=== PATIENT | female | born 1980 | race Caucasian/White ===

== ENCOUNTER 2017-02-01 17:47 | Emergency (ER) | payer OTHER ==
[2017-02-01 18:00] VITALS: RESP 18; TEMP 98.1
[2017-02-01] MEDS ORDERED: NS 1,000 ML IV ONE (18:29)
--- NOTE | 2017-02-01 18:33 | EDPHY ---
H & P Stated Complaint: upper abd pain/belching/hx gall bladder issues Time Seen by Provider: 02/01/17 18:24 HPI/ROS: CHIEF COMPLAINT: Epigastric pain HISTORY OF PRESENT ILLNESS: The patient is a 36-year-old female who comes to the emergency department complaining of epigastric pain, burning sensation, nausea and 1 episode of nonbloody vomiting. No diarrhea. She states that she has a history of gallstones but it is never hurt this bad. She also has a history of heartburn. Her symptoms improved when she became vegetarian 10 years ago, however she began eating meet again recently. Last night she had a very large hamburger late at night and has felt pain ever since. No fever. Her also had similar symptoms 2 days ago but have now resolved. REVIEW OF SYSTEMS: Constitutional: denies: chills, fever, recent illness, recent injury EENTM: denies: blurred vision, double vision, nose congestion Respiratory: denies: cough, shortness of breath Cardiac: denies: chest pain, irregular heart rate, lightheadedness, palpitations Gastrointestinal/Abdominal: See HPI Genitourinary: denies: dysuria, frequency, hematuria, pain Musculoskeletal: denies: joint pain, muscle pain Skin: denies: lesions, rash, jaundice, bruising Neurological: denies: headache, numbness, paresthesia, tingling, dizziness, weakness Hematologic/Lymphatic: denies: blood clots, easy bleeding, easy bruising Immunologic/allergic: denies: HIV/AIDS, transplant EXAM: GENERAL: Well-appearing, well-nourished and in no acute distress. HEAD: Atraumatic, normocephalic. EYES: Pupils equal round and reactive to light, extraocular movements intact, sclera anicteric, conjunctiva are normal. ENT: TMs normal, nares patent, oropharynx clear without exudates. Moist mucous membranes. NECK: Normal range of motion, supple without lymphadenopathy or JVD. LUNGS: Breath sounds clear to auscultation bilaterally and equal. No wheezes rales or rhonchi. HEART: Regular rate and rhythm without murmurs, rubs or gallops. ABDOMEN: Soft, nontender, normoactive bowel sounds. No guarding, no rebound. No masses appreciated. BACK: No CVA tenderness, no spinal tenderness, step-offs or deformities EXTREMITIES: Normal range of motion, no pitting or edema. No clubbing or cyanosis. NEUROLOGICAL: Cranial nerves II through XII grossly intact. Normal speech, normal gait. 5/5 strength, normal movement in all extremities, normal sensation PSYCH: Normal mood, normal affect. SKIN: Warm, dry, normal turgor, no visible rashes or lesions. Source: Patient Exam Limitations: No limitations - Personal History LMP (Females 10-55): 15-21 Days Ago Current Tetanus/Diphtheria Vaccine: No - Medical/Surgical History Hx Asthma: Yes Hx Chronic Respiratory Disease: No Hx Diabetes: No Hx Cardiac Disease: No Hx Renal Disease: No Hx Cirrhosis: No Hx Alcoholism: No Hx HIV/AIDS: No Hx Splenectomy or Spleen Trauma: No Other PMH: PSH: rhinoplasti;. PMH: asthma; hypothyroidism; heart murmor - Family History Significant Family History: No pertinent family hx - Social History Smoking Status: Former smoker Alcohol Use: None Constitutional: Initial Vital Signs Temperature (C) 36.7 C 02/01/17 17:57 Heart Rate 106 H 02/01/17 17:57 Respiratory Rate 18 02/01/17 17:57 Blood Pressure 121/87 H 02/01/17 17:57 O2 Sat (%) 98 02/01/17 17:57 O2 Delivery Mode Room Air Allergies/Adverse Reactions: codeine Allergy (Verified 02/01/17 17:56) erythromycin base Allergy (Verified 02/01/17 17:56) Home Medications: Medication Instructions Recorded Levothyroxine 02/22/15 Qvar 40 (RX) 02/22/15 Famotidine [Pepcid] 40 mg PO HS #30 tablet 02/01/17 Medical Decision Making - Diagnostics EKG Interpretation: An EKG obtained and was read and documented in trace view. Please see trace view for full reading and report. Inverted T-waves in almost all leads. A repeat EKG obtained and was read and documented in trace view. Please see trace view for full reading and report. Similar to previous Imaging Results: Imaging Impressions Abdomen Ultrasound 02/01/17 18:29 Impression: 1. Normal sonographic appearance of the gallbladder with no cholelithiasis, cholecystitis, or bile duct dilatation. 2. There is a nonspecific 1.9 cm rounded hypoechoic structure in the inferior right hepatic lobe. This could be further evaluated with a multiphasic contrast- enhanced CT scan, given the lack of any preceding studies. 3. There is a 4 mm echogenic structure in the lateral midpole of the right kidney, which is nonspecific and could represent a tiny AML or theoretically at tiny calculus although there is no acoustic shadowing. There is no evidence of hydronephrosis or perinephric fluid. Findings were discussed with RALF RADER MD at 20:04, on 02/01/2017. Imaging: Discussed imaging studies w/ call center representative Radiologist ED Course/Re-evaluation: Patient is declining pain or nausea medication. 8:10 p.m. we discussed the lab and imaging results which are reassuring. The patient would like to try GI cocktail declines other medications. She will follow up with her gastrologist. We discussed the lesions in her liver in follow-up CT scan. She does have some abnormal T-wave inversions on her EKG but no dynamic changes and negative troponin after several hours worth of symptoms which is reassuring. I suspect that this is her baseline. She does not complain of any chest pain or shortness of breath. She states that this is very similar to previous episodes of heartburn. Differential Diagnosis: Partial list of the Differential diagnosis considered include but were not limited to; biliary disease, peptic ulcer disease and although unlikely based on the history and physical exam, I also considered pancreatitis, acute coronary disease, PE, pneumonia, urinary tract infection, kidney stone. I discussed these differential diagnoses and the plan with the patient as well as the usual and expected course. The patient understands that the diagnosis is provisional and that in medicine we are not always correct and that further workup is often warranted. Usual and customary warnings were given. All of the patient's questions were answered. The patient was instructed to return to the emergency department should the symptoms at all worsen or return, otherwise to followup with the physician as we discussed. - Data Points Laboratory Results: Laboratory Results 02/01/17 19:05 02/01/17 19:05 02/01/17 02/01/17 02/01/17 Unknown 19:05 19:05 WBC RBC Hgb Hct MCV MCH MCHC RDW Plt Count MPV Neut % (Auto) Lymph % (Auto) Dougherty % (Auto) Eos % (Auto) Baso % (Auto) Nucleat RBC Rel Count Absolute Neuts (auto) Absolute Lymphs (auto) Absolute Monos (auto) Absolute Eos (auto) Absolute Basos (auto) Absolute Nucleated RBC Immature Gran % Immature Gran # Sodium Potassium Chloride Carbon Dioxide Anion Gap BUN Creatinine Estimated GFR Glucose Calcium Total Bilirubin Conjugated Bilirubin Unconjugated Bilirubin AST ALT Alkaline Phosphatase Troponin I < 0.012 ng/mL ng/mL (0.000-0.034) Total Protein Albumin Lipase Beta HCG, Qual NEGATIVE Urine Color YELLOW Urine Appearance HAZY Urine pH 8.0 H (5.0-7.5) Ur Specific [place] 1.026 (1.002-1.030) Urine Protein 1+ H (NEGATIVE) Urine Ketones 1+ H (NEGATIVE) Urine Blood NEGATIVE (NEGATIVE) Urine Nitrate NEGATIVE (NEGATIVE) Urine Bilirubin NEGATIVE (NEGATIVE) Urine Urobilinogen NEGATIVE EU EU (0.2-1.0) Ur Leukocyte Esterase NEGATIVE (NEGATIVE) Urine RBC 5-10 /hpf H /hpf (0-3) Urine WBC 1-3 /hpf /hpf (0-3) Ur Epithelial Cells TRACE /lpf /lpf (NONE-1+) Urine Mucus TRACE /lpf /lpf (NONE-1+) Urine Glucose NEGATIVE (NEGATIVE) 02/01/17 02/01/17 19:05 19:05 WBC 9.53 10^3/uL H 10^3/uL (3.80-9.50) RBC 5.24 10^6/uL 10^6/uL (4.18-5.33) Hgb 15.0 g/dL g/dL (12.6-16.3) Hct 44.5 % % (38.0-47.0) MCV 84.9 fL fL (81.5-99.8) MCH 28.6 pg pg (27.9-34.1) MCHC 33.7 g/dL g/dL (32.4-36.7) RDW 12.9 % % (11.5-15.2) Plt Count 264 10^3/uL 10^3/uL (150-400) MPV 9.8 fL fL (8.7-11.7) Neut % (Auto) 84.1 % H % (39.3-74.2) Lymph % (Auto) 9.8 % L % (15.0-45.0) Dougherty % (Auto) 4.2 % L % (4.5-13.0) Eos % (Auto) 1.3 % % (0.6-7.6) Baso % (Auto) 0.3 % % (0.3-1.7) Nucleat RBC Rel Count 0.0 % % (0.0-0.2) Absolute Neuts (auto) 8.02 10^3/uL H 10^3/uL (1.70-6.50) Absolute Lymphs (auto) 0.93 10^3/uL L 10^3/uL (1.00-3.00) Absolute Monos (auto) 0.40 10^3/uL 10^3/uL (0.30-0.80) Absolute Eos (auto) 0.12 10^3/uL 10^3/uL (0.03-0.40) Absolute Basos (auto) 0.03 10^3/uL 10^3/uL (0.02-0.10) Absolute Nucleated RBC 0.00 10^3/uL 10^3/uL (0-0.01) Immature Gran % 0.3 % % (0.0-1.1) Immature Gran # 0.03 10^3/uL 10^3/uL (0.00-0.10) Sodium 139 mEq/L mEq/L (134-144) Potassium 3.6 mEq/L mEq/L (3.5-5.2) Chloride 100 mEq/L mEq/L (97-110) Carbon Dioxide 24 mEq/l mEq/l (22-31) Anion Gap 15 mEq/L mEq/L (8-16) BUN 17 mg/dL mg/dL (7-23) Creatinine 0.8 mg/dL mg/dL (0.6-1.0) Estimated GFR > 60 Glucose 96 mg/dL mg/dL (70-100) Calcium 10.0 mg/dL mg/dL (8.5-10.4) Total Bilirubin 0.5 mg/dL mg/dL (0.1-1.4) Conjugated Bilirubin 0.2 mg/dL mg/dL (0.0-0.5) Unconjugated Bilirubin 0.3 mg/dL mg/dL (0.0-1.1) AST 34 IU/L IU/L (14-46) ALT 32 IU/L IU/L (9-52) Alkaline Phosphatase 70 IU/L IU/L (38-126) Troponin I Total Protein 7.9 g/dL g/dL (6.3-8.2) Albumin 4.6 g/dL g/dL (3.5-5.0) Lipase 50 IU/L IU/L (23-300) Beta HCG, Qual Urine Color Urine Appearance Urine pH Ur Specific [place] Urine Protein Urine Ketones Urine Blood Urine Nitrate Urine Bilirubin Urine Urobilinogen Ur Leukocyte Esterase Urine RBC Urine WBC Ur Epithelial Cells Urine Mucus Urine Glucose Medications Given: Discontinued Medications Al Hydroxide/Mg Hydroxide (Maalox Susp) 30 ml PO ONCE ONE Stop: 02/01/17 20:10 Last Admin: 02/01/17 20:31 Dose: 30 ml Hyoscyamine Sulfate (Levsin, Hyomax-Sl) 0.25 mg PO ONCE ONE Stop: 02/01/17 20:10 Last Admin: 02/01/17 20:31 Dose: 0.25 mg Sodium Chloride (Ns) 1,000 mls @ 0 mls/hr IV EDNOW ONE; Wide Open PRN Reason: Protocol Stop: 02/01/17 18:30 Last Admin: 02/01/17 19:09 Dose: 1,000 mls Lidocaine (Lidocaine 2% Viscous) 15 ml PO ONCE ONE Stop: 02/01/17 20:10 Last Admin: 02/01/17 20:31 Dose: 15 ml Departure - Departure Disposition: Home, Routine, Self-Care Clinical Impression: Peptic ulcer disease Condition: Good Instructions: Peptic Ulcer (ED) Referrals: Shereen Hamlin MD [Primary Care Provider] - As per Instructions Prescriptions: Famotidine [Pepcid] 40 mg PO HS #30 tablet
--- NOTE | 2017-02-01 19:11 | CPEKG ---
Heart Rate: 98 RR Interval: 612 P-R Interval: 156 QRSD Interval: 80 QT Interval: 336 QTC Interval: 430 P [place]: 24 QRS [place]: 49 T Wave [place]: -41 EKG Severity - ABNORMAL ECG - EKG Impression: SINUS RHYTHM EKG Impression: NONSPECIFIC T ABNORMALITIES, DIFFUSE LEADS Electronically Signed By: Aman Salinas 01-Feb-2017 19:14:17
[2017-02-01 19:15] LABS: % IMMATURE GRANULYOCYTES 0.3 % (0.0-1.1); ABSOLUTE IMMATURE GRANULOCYTES 0.03 10^3/uL (0.00-0.10); ADD DIFF? NO; ADD MORPH? NO; ADD SCAN? NO; ATYPICAL LYMPHOCYTE FLAG 0 (0-99); FRAGMENT RBC FLAG 0 (0-99); HEMATOCRIT 44.5 % (38.0-47.0); LEFT SHIFT FLG 0 (0-99); LIPEMIA HEMOLYSIS FLAG 80 (0-99); MEAN CELL HEMOGLOBIN 28.6 pg (27.9-34.1); MEAN CELL HEMOGLOBIN CONCENTR. 33.7 g/dL (32.4-36.7); MEAN CELL VOLUME 84.9 fL (81.5-99.8); MEAN PLATELET VOLUME 9.8 fL (8.7-11.7); PLATELET CLUMPS FLAG 0 (0-99); PLATELET COUNT 264 10^3/uL (150-400); RED BLOOD CELL COUNT 5.24 10^6/uL (4.18-5.33); RED CELL DISTRIBUTION WIDTH 12.9 % (11.5-15.2)
[2017-02-01 19:16] LABS: COLOR YELLOW; LEUKOCYTE ESTERASE,URINE NEGATIVE (NEGATIVE); NITRITE,URINE NEGATIVE (NEGATIVE)
[2017-02-01 19:22] LABS: MUCUS TRACE /lpf (NONE-1+)
[2017-02-01 19:26] LABS: ALANINE AMINOTRANSFERASE 32 IU/L (9-52); ALBUMIN 4.6 g/dL (3.5-5.0); ALKALINE PHOSPHATASE 70 IU/L (38-126); ANION GAP 15 mEq/L (8-16); ASPARTATE AMINOTRANSFERASE 34 IU/L (14-46); BILIRUBIN,TOTAL 0.5 mg/dL (0.1-1.4); BILIRUBIN-CONJUGATED 0.2 mg/dL (0.0-0.5); BILIRUBIN-UNCONJUGATED 0.3 mg/dL (0.0-1.1); CARBON DIOXIDE 24 mEq/l (22-31); CHLORIDE 100 mEq/L (97-110); CREATININE 0.8 mg/dL (0.6-1.0); GLOMERULAR FILTRATION RATE > 60; GLUCOSE 96 mg/dL (70-100); POTASSIUM 3.6 mEq/L (3.5-5.2); SODIUM 139 mEq/L (134-144); TOTAL PROTEIN 7.9 g/dL (6.3-8.2)
--- NOTE | 2017-02-01 19:49 | CPEKG ---
Heart Rate: 98 RR Interval: 612 P-R Interval: 152 QRSD Interval: 80 QT Interval: 316 QTC Interval: 404 P [place]: 37 QRS [place]: 54 T Wave [place]: -54 EKG Severity - ABNORMAL ECG - EKG Impression: SINUS RHYTHM EKG Impression: NONSPECIFIC T ABNORMALITIES, DIFFUSE LEADS EKG Impression: Unchanged from previous Electronically Signed By: Aman Salinas 01-Feb-2017 19:50:14
[2017-02-01] MEDS ORDERED: MAG HYDROX/AL HYDROX/SIMETH 30 ML UDCUP PO ONE (20:09)
[2017-02-01] MEDS ORDERED: HYOSCYAMINE SULFATE 0.125 MG TAB PO ONE (20:09)
[2017-02-01] MEDS ORDERED: LIDOCAINE 2% VISCOUS 15 ML UDCUP PO ONE (20:09)
[2017-02-01 20:45] VITALS: BP 122/89; PULSE 78; O2SAT 97
== END 2017-02-01 20:45 | disposition home or self-care (01) ==
PROC: 3E0337Z Introduction of Electrolytic and Water Balance Substance into Peripheral Vein, Percutaneous Approach (ICD-10-PCS; principal; 2017-02-01)
DX: K27.9 Peptic ulcer, site unspecified, unspecified as acute or chronic, without hemorrhage or perforation (principal); J45.909 Unspecified asthma, uncomplicated; E86.9 Volume depletion, unspecified; Z87.891 Personal history of nicotine dependence

== ENCOUNTER → 2017-05-11 | Outpatient (CLI) | payer OTHER ==
[~2017-05-11] MED LIST: GADOBUTROL 10 ML VIAL IVP ONE
== END ==
LOC: FIMAGING 06:58
PROVIDERS: ATTEND Internal Medicine Gastroenterology
DX: K76.9 Liver disease, unspecified (principal); N28.9 Disorder of kidney and ureter, unspecified
CPT/HCPCS: A9585

== ENCOUNTER → 2017-08-17 | Outpatient (CLI) | payer OTHER | LOC: FIMAGING 09:08 | PROVIDERS: ATTEND Internal Medicine Gastroenterology | DX: K76.89 Other specified diseases of liver (principal); D17.71 Benign lipomatous neoplasm of kidney ==

== ENCOUNTER → 2017-08-21 | Outpatient (CLI) | payer OTHER | LOC: FIMAGING 14:51 | PROVIDERS: ATTEND Obstetrics & Gynecology | DX: Z36.82 Encounter for antenatal screening for nuchal translucency (principal); O09.521 Supervision of elderly multigravida, first trimester; Z3A.11 11 weeks gestation of pregnancy ==

== ENCOUNTER → 2017-12-11 | Outpatient (CLI) | payer OTHER | LOC: FIMAGING 08:14 | PROVIDERS: ATTEND Internal Medicine Gastroenterology | DX: K76.89 Other specified diseases of liver (principal) ==

== ENCOUNTER → 2017-12-27 | Outpatient (CLI) | payer OTHER | LOC: FIMAGING 11:06 | PROVIDERS: ATTEND Obstetrics & Gynecology | DX: O09.523 Supervision of elderly multigravida, third trimester (principal); O36.8390 Maternal care for abnormalities of the fetal heart rate or rhythm, unspecified trimester, not applicable or unspecified; O26.613 Liver and biliary tract disorders in pregnancy, third trimester; Z3A.30 30 weeks gestation of pregnancy ==

== ENCOUNTER 2018-01-30 15:50 | Inpatient (IN) | payer OTHER ==
[2018-01-30 16:30] LABS: PLATELET COUNT 179 10^3/uL (150-400)
[2018-01-30] MEDS ORDERED: BETAMETHASONE IM SYRINGE IM ONE (19:18)
[2018-01-30] MEDS ORDERED: diphenhydrAMINE 25 MG CAP PO PRN (19:20)
[2018-01-30] MEDS ORDERED: ZOLPIDEM TARTRATE 5 MG TAB PO PRN (19:21)
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
[2018-01-31] MEDS: LEVOTHYROXINE 150 MCG TAB PO SCH (06:07)
[2018-01-31 06:35] LABS: PLATELET COUNT 196 10^3/uL (150-400)
--- NOTE | 2018-01-31 09:59 | OBPROG ---
Labor Progress Note Assessment/Plan: Assessment: 37 at 35w1d by LMP c/w 10 wk US - here with preeclampsia, with BPs intermittently in the severe range. PIH labs this morning in the normal range, and strangely p/c has normalized ( was 2.2 yesterday). Plan:1) s/p betamethasone #1 last night - plan #2 tonight at 1920 2) MFM consult today - has already had growth ultrasound. Will make plan after MFM input. Continue in house observation for now. May need to consider anti-HTN medication. Norma Workman MD, [facility] 01/31/18 09:46 Subjective/Intrapartum Course: Pt doing well. Good FM, no VB, no LOF. Not feeling any contractions. Currently has a mild PARKER, no vis changes, no epigastric pain, no RUQ pain. 01/31/18 10:20 Objective: 01/31/18 06:15 01/31/18 06:15 Uric Acid 6.3 mg/dL (2.5-6.8) 01/31/18 06:15 Total Bilirubin 0.2 mg/dL (0.1-1.4) 01/31/18 06:15 Conjugated Bilirubin 0.1 mg/dL (0.0-0.5) 01/31/18 06:15 Unconjugated Bilirubin 0.1 mg/dL (0.0-1.1) 01/31/18 06:15 AST 15 IU/L (14-46) 01/31/18 06:15 ALT 16 IU/L (9-52) 01/31/18 06:15 Lactate Dehydrogenase 427 IU/L (313-618) 01/31/18 06:15 gen - pleasant, NAD CV - RRR chest - CTAB abd - gravid, soft, NT ext - 2+ pitting edema, 2+ DTRs BLE, 1 + clonus FHR - 130 reactive toco - no contractions BPs 37.2 92 140/83 BPs: at 1545 162/99 yesterday, and at 2152 163/91 overnight - some 120-130/70-80s - Contraction Pattern Assessment Current Contraction Pattern: Irregular - FHR Assessment Martinez FHR (bpm): 130 FHR Pattern Variability: Moderate FHR Category: 1 Oxytocin Orders Assessment - Pre-Induction/Augmentation Assessment Gestational Age: 35 week(s) and 0 day(s) ICD10 Worksheet Patient Problems: Problems Problem Status Onset Preeclampsia Acute - ICD10 Problem Qualifiers (1) Preeclampsia Qualifiers: Trimester: third trimester Qualified Code(s): O14.93 - Unspecified pre- eclampsia, third trimester
--- NOTE | 2018-01-31 13:00 | OBPROG ---
Labor Progress Note Assessment/Plan: Assessment: 37 at 35w1d by LMP c/w 10 wk US - here with preeclampsia, with BPs intermittently in the severe range. PIH labs this morning in the normal range, and strangely p/c has normalized ( was 2.2 yesterday). Plan:1) s/p betamethasone #1 last night - plan #2 tonight at 1920 2) MFM consult today - has already had growth ultrasound. Will make plan after MFM input. Continue in house observation for now. May need to consider anti-HTN medication. Norma Workman MD, FACOG [facility] 01/31/18 09:46 01/31/18 12:56 A/P: 37 at 35w1d with preeclampsia with severe features - diagnosis confirmed by Dr. Finch, [facility]. Will proceed with induction of labor, with mag sulfate. Will check cervix and likely start with cervical balloon and pitocin. Norma Workman MD, [facility]OG [facility] Subjective/Intrapartum Course: Pt doing well. Good FM, no VB, no LOF. Not feeling any contractions. Currently has a mild PARKER, no vis changes, no epigastric pain, no RUQ pain. 01/31/18 10:20 01/31/18 13:00 Pt resting comfortably. Still with a mild PARKER. Objective: 01/31/18 06:15 01/31/18 06:15 Uric Acid 6.3 mg/dL (2.5-6.8) 01/31/18 06:15 Total Bilirubin 0.2 mg/dL (0.1-1.4) 01/31/18 06:15 Conjugated Bilirubin 0.1 mg/dL (0.0-0.5) 01/31/18 06:15 Unconjugated Bilirubin 0.1 mg/dL (0.0-1.1) 01/31/18 06:15 AST 15 IU/L (14-46) 01/31/18 06:15 ALT 16 IU/L (9-52) 01/31/18 06:15 Lactate Dehydrogenase 427 IU/L (313-618) 01/31/18 06:15 NO changes since 0900 exam. 135/75 88 now - Contraction Pattern Assessment Current Contraction Pattern: Irregular - FHR Assessment Martinez FHR (bpm): 130 FHR Pattern Variability: Moderate FHR Category: 1 Oxytocin Orders Assessment - Pre-Induction/Augmentation Assessment Gestational Age: 35 week(s) and 0 day(s) ICD10 Worksheet Patient Problems: Problems Problem Status Onset Preeclampsia Acute Severe pre-eclampsia Acute Severe pre-eclampsia Acute - ICD10 Problem Qualifiers (1) Preeclampsia Qualifiers: Trimester: third trimester Qualified Code(s): O14.93 - Unspecified pre- eclampsia, third trimester (2) Severe pre-eclampsia (3) Severe pre-eclampsia
[2018-01-31] MEDS ORDERED: MAGNESIUM SULF 4 GM/WATER 100 ML IV ONE (13:14)
[2018-01-31] MEDS ORDERED: CALCIUM GLUC 10% 1 GM/10 ML VIAL IVP PRN (13:14)
--- NOTE | 2018-01-31 14:26 | OBPROG ---
Labor Progress Note Assessment/Plan: Assessment: 37 at 35w1d by LMP c/w 10 wk US - here with preeclampsia, with BPs intermittently in the severe range. PIH labs this morning in the normal range, and strangely p/c has normalized ( was 2.2 yesterday). Plan:1) s/p betamethasone #1 last night - plan #2 tonight at 1920 2) MFM consult today - has already had growth ultrasound. Will make plan after MFM input. Continue in house observation for now. May need to consider anti-HTN medication. Norma Workman MD, FACOG [facility] 01/31/18 09:46 01/31/18 12:56 A/P: 37 at 35w1d with preeclampsia with severe features - diagnosis confirmed by Dr. Finch, [facility]. Will proceed with induction of labor, with mag sulfate for seizure prophylaxis. PCN for GBS unknown and . Will ripen cervix with buccal misoprostil to start. Norma Workman MD, [facility] 01/31/18 14:36 Subjective/Intrapartum Course: Pt doing well. Good FM, no VB, no LOF. Not feeling any contractions. Currently has a mild PARKER, no vis changes, no epigastric pain, no RUQ pain. 01/31/18 10:20 01/31/18 13:00 Pt resting comfortably. Still with a mild PARKER. Objective: 01/31/18 06:15 01/31/18 06:15 Uric Acid 6.3 mg/dL (2.5-6.8) 01/31/18 06:15 Total Bilirubin 0.2 mg/dL (0.1-1.4) 01/31/18 06:15 Conjugated Bilirubin 0.1 mg/dL (0.0-0.5) 01/31/18 06:15 Unconjugated Bilirubin 0.1 mg/dL (0.0-1.1) 01/31/18 06:15 AST 15 IU/L (14-46) 01/31/18 06:15 ALT 16 IU/L (9-52) 01/31/18 06:15 Lactate Dehydrogenase 427 IU/L (313-618) 01/31/18 06:15 - Contraction Pattern Assessment Current Contraction Pattern: Irregular Oxytocin Orders Assessment - Pre-Induction/Augmentation Assessment Gestational Age: 35 week(s) and 0 day(s) ICD10 Worksheet Patient Problems: Problems Problem Status Onset Preeclampsia Acute Severe pre-eclampsia Acute Severe pre-eclampsia Acute - ICD10 Problem Qualifiers (1) Preeclampsia Qualifiers: Trimester: third trimester Qualified Code(s): O14.93 - Unspecified pre- eclampsia, third trimester (2) Severe pre-eclampsia (3) Severe pre-eclampsia
[2018-01-31] MEDS ORDERED: PENICILLIN G POTASSIUM 5,000,000 UNIT in D5W 150 ML IV ONE (14:28)
[2018-01-31] MEDS: LR 1,000 ML IV SCH (14:30)
[2018-01-31] MEDS: Mag Sulf 500 ML IV SCH (14:35)
[2018-01-31] MEDS: MISOPROSTOL 50 MCG CAP PO PRN ×2 (15:01→19:09)
[2018-01-31] MEDS: RANITIDINE HCL 150 MG/10 ML UDCUP PO SCH ×2 (15:02→22:06)
[2018-01-31] MEDS ORDERED: AMMONIA AROMATIC 1 EACH AMP IH ONE (17:27)
[2018-01-31] MEDS ORDERED: OLIVE OIL 118 ML BTL ONE (17:27)
[2018-01-31] MEDS ORDERED: LIDOCAINE 1% 300 MG/30 ML SDV ONE (17:27)
[2018-01-31] MEDS ORDERED: TERBUTALINE SULFATE 1 MG/ML VIAL ONE (17:27)
[2018-01-31] MEDS ORDERED: OXYTOCIN 10 UNIT/ML VIAL ONE (17:28)
[2018-01-31] MEDS ORDERED: MISOPROSTOL 200 MCG TAB ONE (17:28)
[2018-01-31] MEDS: PENICILLIN G POTASSIUM 2,500,000 UNIT in D5W 150 ML IV SCH ×2 (19:09→23:04)
[2018-01-31] MEDS ORDERED: BETAMETHASONE IM SYRINGE IM ONE (19:19)
--- NOTE | 2018-01-31 20:05 | OBPROG ---
Labor Progress Note Assessment/Plan: Assessment: 38 at 35w1d by LMP c/w 10 wk US - here with preeclampsia, with BPs intermittently in the severe range. PIH labs this morning in the normal range, and strangely p/c has normalized ( was 2.2 yesterday). Plan:1) s/p betamethasone #1 last night - plan #2 tonight at 1920 2) MFM consult today - has already had growth ultrasound. Will make plan after MFM input. Continue in house observation for now. May need to consider anti-HTN medication. Norma Workman MD, [facility] 01/31/18 09:46 01/31/18 12:56 A/P: 38 at 35w1d with preeclampsia with severe features - diagnosis confirmed by Dr. Finch, [facility]. Will proceed with induction of labor, with mag sulfate for seizure prophylaxis. PCN for GBS unknown and . Will ripen cervix with buccal misoprostil to start. Norma Workman MD, [facility] 01/31/18 14:36 A/P: 38 at 35w1d - undergoing IOL for preeclampsia with severe features. Misoprostil #1 buccally given at 1500 - reviewed options and pt would like to continue with this for now - is having mild contractions. Continue magsulfate seizure prophylaxis - tolerating well so far. Cont PCN for , unknown GBS status (still pending). Betamethasone #2 given Omid Workman MD 01/31/18 20:02 Subjective/Intrapartum Course: Pt doing well. Good FM, no VB, no LOF. Not feeling any contractions. Currently has a mild PARKER, no vis changes, no epigastric pain, no RUQ pain. 01/31/18 10:20 01/31/18 13:00 Pt resting comfortably. Still with a mild PARKER. 01/31/18 20:09 Pt having some anxiety - was concerned she was having palpitations, then was feeling chest tightness, but after more discussion -was feeling this tightness when she was having a contraction on the monitor, but was not aware of it. No PARKER currently, no vis changes, no dyspnea. Feels tired. No vis changes. Objective: 01/31/18 06:15 01/31/18 06:15 Patient ABO/Rh O POSITIVE 01/31/18 13:55 Uric Acid 6.3 mg/dL (2.5-6.8) 01/31/18 06:15 Total Bilirubin 0.2 mg/dL (0.1-1.4) 01/31/18 06:15 Conjugated Bilirubin 0.1 mg/dL (0.0-0.5) 01/31/18 06:15 Unconjugated Bilirubin 0.1 mg/dL (0.0-1.1) 01/31/18 06:15 AST 15 IU/L (14-46) 01/31/18 06:15 ALT 16 IU/L (9-52) 01/31/18 06:15 Lactate Dehydrogenase 427 IU/L (313-618) 01/31/18 06:15 Group B Strep DNA POSITIVE (NEGATIVE) H 01/30/18 19:15 gen - pleasant, NAD abd - gravid, soft NT when not eugenie - Contraction Pattern Assessment Current Contraction Pattern: Irregular (q2-6) - FHR Assessment Martinez FHR (bpm): 130 FHR Pattern Variability: Moderate FHR Category: 1 Oxytocin Orders Assessment - Pre-Induction/Augmentation Assessment Gestational Age: 35 week(s) and 0 day(s) ICD10 Worksheet Patient Problems: Problems Problem Status Onset Preeclampsia Acute Severe pre-eclampsia Acute Severe pre-eclampsia Acute - ICD10 Problem Qualifiers (1) Preeclampsia Qualifiers: Trimester: third trimester Qualified Code(s): O14.93 - Unspecified pre- eclampsia, third trimester (2) Severe pre-eclampsia (3) Severe pre-eclampsia
--- NOTE | 2018-01-31 23:14 | OBPROG ---
Labor Progress Note Assessment/Plan: Assessment: 38 at 35w1d by LMP c/w 10 wk US - here with preeclampsia, with BPs intermittently in the severe range. PIH labs this morning in the normal range, and strangely p/c has normalized ( was 2.2 yesterday). Plan:1) s/p betamethasone #1 last night - plan #2 tonight at 1920 2) MFM consult today - has already had growth ultrasound. Will make plan after MFM input. Continue in house observation for now. May need to consider anti-HTN medication. Norma Workman MD, [facility] 01/31/18 09:46 01/31/18 12:56 A/P: 37 at 35w1d with preeclampsia with severe features - diagnosis confirmed by Dr. Finch, [facility]. Will proceed with induction of labor, with mag sulfate for seizure prophylaxis. PCN for GBS unknown and . Will ripen cervix with buccal misoprostil to start. Norma Workman MD, [facility] 01/31/18 14:36 A/P: 37 at 35w1d - undergoing IOL for preeclampsia with severe features. Misoprostil #1 buccally given at 1500 - reviewed options and pt would like to continue with this for now - is having mild contractions. Continue magsulfate seizure prophylaxis - tolerating well so far. Cont PCN for , unknown GBS status (still pending). Betamethasone #2 given Omid Workman MD 01/31/18 20:02 A/P: 38 at 35w1d - undergoing IOL for preeclampsia with severe features, good urine output, BPs stable. 1) Transcervical balloon catheter placed digitally - 60ml in uterine balloon, 40ml in vaginal balloon, will start pitocin (has been over 4 hours since 2nd dose of misoprostil buccally. 2) Cont Magsulfate for seizure prophylaxis 3) Cont PCN for GBS pos 4) S/p betameth #2 at 1930 tonight 01/31/18 23:42 Subjective/Intrapartum Course: Pt doing well. Good FM, no VB, no LOF. Not feeling any contractions. Currently has a mild PARKER, no vis changes, no epigastric pain, no RUQ pain. 01/31/18 10:20 01/31/18 13:00 Pt resting comfortably. Still with a mild PARKER. 01/31/18 20:09 Pt having some anxiety - was concerned she was having palpitations, then was feeling chest tightness, but after more discussion -was feeling this tightness when she was having a contraction on the monitor, but was not aware of it. No PARKER currently, no vis changes, no dyspnea. Feels tired. No vis changes. 01/31/18 23:48 Pt doing well, though still very anxious. Still interprets the beginning of a contraction as some chest tightness, but no longer as anxiety producing since she knows they are contractions. No PARKER, no vis changes, no dyspnea. Objective: 01/31/18 06:15 01/31/18 06:15 Patient ABO/Rh O POSITIVE 01/31/18 13:55 Uric Acid 6.3 mg/dL (2.5-6.8) 01/31/18 06:15 Total Bilirubin 0.2 mg/dL (0.1-1.4) 01/31/18 06:15 Conjugated Bilirubin 0.1 mg/dL (0.0-0.5) 01/31/18 06:15 Unconjugated Bilirubin 0.1 mg/dL (0.0-1.1) 01/31/18 06:15 AST 15 IU/L (14-46) 01/31/18 06:15 ALT 16 IU/L (9-52) 01/31/18 06:15 Lactate Dehydrogenase 427 IU/L (313-618) 01/31/18 06:15 Group B Strep DNA POSITIVE (NEGATIVE) H 01/30/18 19:15 urine output = 825ml in past 3 hours gen - pleasant, NAD CV - RRR chest - CTAB abd - soft, gravid, NT ext -2+ DTRs, still 1 beat of clonus. SVE 1.5 / 70 / -3 With sterile gloves, was able to digitally place a Cook Catheter using a stylet , and have RN fill uterine balloon with 60ml fluid, and vaginal balloon with 40ml of fluid. Pt ketty well, though initially felt some rectal pressure, which seemed to resolve after a few minutes. EFW = 77%ile, 2877gm = 6lb5oz, cephalic per MFM scan today. - Contraction Pattern Assessment Current Contraction Pattern: Regular (q5-7), Irregular (q2-6) - FHR Assessment Martinez FHR (bpm): 130 FHR Pattern Variability: Moderate FHR Category: 1 - Procedures Non-surgical Procedures: Other (Specify) (Cook transcervical balloon catheter placed, 60ml U, 40ml V. ) Oxytocin Orders Assessment - Pre-Induction/Augmentation Assessment Gestational Age: 35 week(s) and 0 day(s) ICD10 Worksheet Patient Problems: Problems Problem Status Onset Preeclampsia Acute Severe pre-eclampsia Acute Severe pre-eclampsia Acute - ICD10 Problem Qualifiers (1) Preeclampsia Qualifiers: Trimester: third trimester Qualified Code(s): O14.93 - Unspecified pre- eclampsia, third trimester (2) Severe pre-eclampsia (3) Severe pre-eclampsia
[2018-01-31] MEDS ORDERED: LR 500 ML IV PRN (23:44)
[2018-01-31] MEDS: OXYTOCIN/RINGERS LACTATE 500 ML IV SCH (23:59)
[2018-02-01] MEDS: Mag Sulf 500 ML IV SCH ×3 (01:11→20:57)
[2018-02-01] MEDS ORDERED: fentaNYL 200 MCG, BUPIVACAINE 0.5% 20 ML in NS 100 ML EP ONE (01:30)
[2018-02-01] MEDS ORDERED: LABETALOL HCL 5 MG/ML 20 ML MDV ONE (01:35)
[2018-02-01] MEDS ORDERED: BUPIVACAINE 0.5% 30 ML SDV ONE ×3 (01:36→19:38)
[2018-02-01] MEDS ORDERED: PHENYLEPHRINE HCL 100 MCG/ML SYR ONE (01:37)
[2018-02-01] MEDS ORDERED: LABETALOL HCL 5 MG/ML 20 ML MDV IVP ONE (01:45)
[2018-02-01] MEDS ORDERED: PHENYLEPHRINE HCL 100 MCG/ML SYR IVP PRN (02:10)
--- NOTE | 2018-02-01 02:10 | PREANESOB ---
Obstetric Pre-Anesthesia Info - General Info Proposed Procedure: TINY : 2 Para: 0 PAUL: 03/06/18 Gestational Age: 35 week(s) and 0 day(s) - Info Status: Premature, Martinez Monitors: External FHR Pattern: Reassuring - Labor Status PIH: Moderate Magnesium Sulfate in Use: Yes Indications for Labor Analgesia: BP Control, Pain Control Labor Epidural: Proposed Anesthesia Allergies/Adverse Reactions: Allergy/AdvReac Type Severity Reaction Status Date / Time codeine Allergy Verified 02/01/17 17:56 erythromycin base Allergy Verified 02/01/17 17:56 Home Medications: Medication Instructions Recorded Levothyroxine 150 mcg PO DAILY 02/22/15 Qvar 40 (RX) 80 mcg PO DAILY 02/22/15 Docosahexanoic Acid [ Dha] 1 tab PO DAILY MDD does gummies 01/30/18 Visit Medications: Generic Name Dose Route Start Last Admin Trade Name Freq PRN Reason Stop Dose Admin Calcium Gluconate 1 gm 01/31/18 13:14 Calcium Gluconate IVP 07/30/18 13:13 PRN PRN Magnesium Toxicity Diphenhydramine HCl 25 mg 01/30/18 19:20 Benadryl PO 07/29/18 19:19 HS PRN Sleep/Insomnia Magnesium Sulfate 500 mls @ 50 mls/hr 01/31/18 13:30 02/01/18 01:11 Magnesium Sulfate 20 Gm/ 500 Ml (Premix) IV 07/30/18 13:29 500 mls CONT JUAN J Administration Penicillin G Potassium 2,500, 155 mls @ 155 mls/hr 01/31/18 20:00 01/31/18 23 :04 000 unit/ Dextrose IV 03/02/18 19:59 155 mls Q4H JUAN J Administration Lactated Ringer's 1,000 mls @ 75 mls/hr 01/31/18 18:00 01/31/18 14:30 Lr IV 07/30/18 17:59 1,000 mls CONT JUAN J Administration Lactated Ringer's 500 mls @ 500 mls/hr 01/31/18 23:44 Lr IV 02/01/18 23:44 PRN PRN Maternal Hypotension Oxytocin/Lactated Ringer's 500 mls @ 0 mls/hr 01/31/18 23:45 01/31/18 23:59 Pitocin 30 Units/Lr (Premix) IV 07/30/18 23:44 500 mls CONT JUAN J Administration Protocol Per Protocol Levothyroxine Sodium 150 mcg 01/31/18 06:00 01/31/18 06:07 Synthroid PO 07/30/18 05:59 150 mcg DAILY AT 6AM JUAN J Administration Misoprostol 50 mcg 01/31/18 14:13 01/31/18 19:09 Cytotec PO 07/30/18 14:12 50 mcg PRN PRN Administration cervical ripening Ranitidine HCl 150 mg 01/31/18 10:45 01/31/18 22:06 Zantac PO 07/30/18 10:44 Not Given BID JUAN J Zolpidem Tartrate 5 mg 01/30/18 19:21 Ambien PO 07/29/18 19:20 HS PRN Sleep/Insomnia Discontinued Medications Generic Name Dose Route Start Last Admin Trade Name Freq PRN Reason Stop Dose Admin Ammonia (Aromatic Spirit) Confirm 01/31/18 17:27 Ammonia Aromatic Administered 01/31/18 17:28 Dose 1 each IH .STK-MED ONE Betamethasone Acet/Betameth SodPhos 12 mg 01/30/18 19:18 01/30/18 19:39 Celestone Im Syringe IM 01/30/18 19:19 12 mg ONCE ONE Administration Betamethasone Acet/Betameth SodPhos 12 mg 01/31/18 19:19 01/31/18 19:42 Celestone Im Syringe IM 01/31/18 19:20 12 mg ONCE ONE Administration Bupivacaine HCl Confirm 02/01/18 01:36 Sensorcaine 0.5% Vial Administered 02/01/18 01:37 Dose 30 ml .ROUTE .STK-MED ONE Magnesium Sulfate 100 mls @ 200 mls/hr 01/31/18 13:14 01/31/18 14:35 Magnesium Sulf 4 Gm (Premix) IV 01/31/18 13:43 100 mls ONCE ONE Administration Penicillin G Potassium 5,000, 160 mls @ 160 mls/hr 01/31/18 14:28 01/31/18 14 :54 000 unit/ Dextrose IV 01/31/18 15:27 160 mls EDNOW ONE Administration Protocol Fentanyl 200 mcg/ Bupivacaine 100 mls @ 0 mls/hr 02/01/18 01:30 HCl 20 ml/ Sodium Chloride EP 02/01/18 01:31 ONCALL ONE Protocol As Directed Labetalol HCl Confirm 02/01/18 01:35 Trandate Injection Administered 02/01/18 01:36 Dose 100 mg .ROUTE .STK-MED ONE Labetalol HCl 20 mg 02/01/18 01:45 Trandate Injection IVP 02/01/18 01:46 ONCE ONE Lidocaine HCl Confirm 01/31/18 17:27 Lidocaine Hcl 1% Administered 01/31/18 17:28 Dose 300 mg .ROUTE .STK-MED ONE Misoprostol Confirm 01/31/18 17:28 Cytotec Administered 01/31/18 17:29 Dose 1,000 mcg .ROUTE .STK-MED ONE Magnolia Oil Confirm 01/31/18 17:27 Sweet Oil Administered 01/31/18 17:28 Dose 118 ml .ROUTE .STK-MED ONE Oxytocin Confirm 01/31/18 17:28 Pitocin Administered 01/31/18 17:29 Dose 40 unit .ROUTE .STK-MED ONE Phenylephrine HCl Confirm 02/01/18 01:37 Neosynephrine Administered 02/01/18 01:38 Dose 1,000 mcg .ROUTE .STK-MED ONE Terbutaline Sulfate Confirm 01/31/18 17:27 Brethine Administered 01/31/18 17:28 Dose 1 mg .ROUTE .STK-MED ONE - Anesthesia History Response to Local Anesthetics: Normal Anesthesia & Operative History: No Prior Problems - Vital Signs Height/Weight (Nursing): Height 154.94 cm Weight 77.111 kg - Focused Exam Neck exam: FROM Mallampati Score: Class 2 Mouth exam: normal dental/mouth exam Pulmonary: no respiratory distress, no rales or rhonchi, clear to auscultation Cardiovascular: regular rate and rhythym, no murmur, rub, or gallop Labs: 01/31/18 06:15 01/31/18 06:15 Patient ABO/Rh O POSITIVE 01/31/18 13:55 Uric Acid 6.3 mg/dL (2.5-6.8) 01/31/18 06:15 Total Bilirubin 0.2 mg/dL (0.1-1.4) 01/31/18 06:15 Conjugated Bilirubin 0.1 mg/dL (0.0-0.5) 01/31/18 06:15 Unconjugated Bilirubin 0.1 mg/dL (0.0-1.1) 01/31/18 06:15 AST 15 IU/L (14-46) 01/31/18 06:15 ALT 16 IU/L (9-52) 01/31/18 06:15 Lactate Dehydrogenase 427 IU/L (313-618) 01/31/18 06:15 Group B Strep DNA POSITIVE (NEGATIVE) H 01/30/18 19:15 - Plan Consent Signed and on Chart: Yes Patient/Guardian Understands and Agrees to Plan: Yes
[2018-02-01] MEDS ORDERED: fentaNYL 100 MCG/2 ML INJ ONE (02:26)
[2018-02-01] MEDS ORDERED: fentaNYL 200 MCG, BUPIVACAINE 0.5% 20 ML in NS 100 ML EP SCH (02:30)
[2018-02-01] MEDS ORDERED: LR 500 ML IV SCH (02:30)
[2018-02-01] MEDS ORDERED: fentaNYL 2MCG/ML/BUP 0.1% RTU 100 ML EP SCH (02:30)
--- NOTE | 2018-02-01 02:41 | POSTANESTH ---
Post Anesthetic Evaluation Cardiovascular Status: Normal, Stable Respiratory Status: Normal, Stable, Similar to Pre-op Cond. Level of Consciousness/Mental Status: Can Participate in Eval, Alert and Oriented Pain Control: Adequate, Prn Tx Ordered Nausea/Vomiting Control: Adequate, Prn Tx Ordered Complications Possibly Related to Anesthesia: None Noted (Excellent analgesia.)
[2018-02-01] MEDS: PENICILLIN G POTASSIUM 2,500,000 UNIT in D5W 150 ML IV SCH ×5 (03:01→21:46)
--- NOTE | 2018-02-01 03:34 | OBPROG ---
Labor Progress Note Assessment/Plan: Assessment: 38 at 35w1d by LMP c/w 10 wk US - here with preeclampsia, with BPs intermittently in the severe range. PIH labs this morning in the normal range, and strangely p/c has normalized ( was 2.2 yesterday). Plan:1) s/p betamethasone #1 last night - plan #2 tonight at 1920 2) MFM consult today - has already had growth ultrasound. Will make plan after MFM input. Continue in house observation for now. May need to consider anti-HTN medication. Norma Workman MD, [facility] 01/31/18 09:46 01/31/18 12:56 A/P: 38 at 35w1d with preeclampsia with severe features - diagnosis confirmed by Dr. Finch, [facility]. Will proceed with induction of labor, with mag sulfate for seizure prophylaxis. PCN for GBS unknown and . Will ripen cervix with buccal misoprostil to start. Norma Workman MD, [facility] 01/31/18 14:36 A/P: 38 at 35w1d - undergoing IOL for preeclampsia with severe features. Misoprostil #1 buccally given at 1500 - reviewed options and pt would like to continue with this for now - is having mild contractions. Continue magsulfate seizure prophylaxis - tolerating well so far. Cont PCN for , unknown GBS status (still pending). Betamethasone #2 given Omid Workman MD 01/31/18 20:02 A/P: 38 at 35w1d - undergoing IOL for preeclampsia with severe features, good urine output, BPs stable. 1) Transcervical balloon catheter placed digitally - 60ml in uterine balloon, 40ml in vaginal balloon, will start pitocin (has been over 4 hours since 2nd dose of misoprostil buccally. 2) Cont Magsulfate for seizure prophylaxis 3) Cont PCN for GBS pos 4) S/p betameth #2 at 1930 tonight 01/31/18 23:42 02/01/18 03:31 A/P:38 at 35w2d, IOL for preeclampsia with severe features, now comfortable with epidural and sleeping, good urine output 1) BPs stabilized and lower after epidural - was about to give labetolol IV when asked for epidural and Dr. Gardner, anesthesia, recommended waiting until after epidural. Continue pitocin and balloon catheter still in place. 2) Cont Magsulfate 3) GBS pos - cont PCN 4) s/p betameth x 2 Omid Workman MD Subjective/Intrapartum Course: Pt doing well. Good FM, no VB, no LOF. Not feeling any contractions. Currently has a mild PARKER, no vis changes, no epigastric pain, no RUQ pain. 01/31/18 10:20 01/31/18 13:00 Pt resting comfortably. Still with a mild PARKER. 01/31/18 20:09 Pt having some anxiety - was concerned she was having palpitations, then was feeling chest tightness, but after more discussion -was feeling this tightness when she was having a contraction on the monitor, but was not aware of it. No PARKER currently, no vis changes, no dyspnea. Feels tired. No vis changes. 01/31/18 23:48 Pt doing well, though still very anxious. Still interprets the beginning of a contraction as some chest tightness, but no longer as anxiety producing since she knows they are contractions. No PARKER, no vis changes, no dyspnea. 02/01/18 03:34 Pt currently sleeping. Objective: 01/31/18 06:15 01/31/18 06:15 Patient ABO/Rh O POSITIVE 01/31/18 13:55 Uric Acid 6.3 mg/dL (2.5-6.8) 01/31/18 06:15 Total Bilirubin 0.2 mg/dL (0.1-1.4) 01/31/18 06:15 Conjugated Bilirubin 0.1 mg/dL (0.0-0.5) 01/31/18 06:15 Unconjugated Bilirubin 0.1 mg/dL (0.0-1.1) 01/31/18 06:15 AST 15 IU/L (14-46) 01/31/18 06:15 ALT 16 IU/L (9-52) 01/31/18 06:15 Lactate Dehydrogenase 427 IU/L (313-618) 01/31/18 06:15 Group B Strep DNA POSITIVE (NEGATIVE) H 01/30/18 19:15 Had a couple BPs 160s/90s right before requesting epidural. Since epidural - 140s/80s mostly. - Contraction Pattern Assessment Current Contraction Pattern: Regular (q5-7), Irregular (q2-6 wtih intermittent coupling, pitocin currently at 10miu/hr) - FHR Assessment Martinez FHR (bpm): 125 FHR Pattern Variability: Moderate FHR Category: 1 - Procedures Non-surgical Procedures: Other (Specify) (Cook transcervical balloon catheter placed, 60ml U, 40ml V. ) Oxytocin Orders Assessment - Pre-Induction/Augmentation Assessment Gestational Age: 35 week(s) and 0 day(s) ICD10 Worksheet Patient Problems: Problems Problem Status Onset Preeclampsia Acute Severe pre-eclampsia Acute Severe pre-eclampsia Acute - ICD10 Problem Qualifiers (1) Preeclampsia Qualifiers: Trimester: third trimester Qualified Code(s): O14.93 - Unspecified pre- eclampsia, third trimester (2) Severe pre-eclampsia (3) Severe pre-eclampsia
[2018-02-01] MEDS: LEVOTHYROXINE 150 MCG TAB PO SCH (06:07)
--- NOTE | 2018-02-01 06:38 | OBPROG ---
Labor Progress Note Assessment/Plan: Assessment: 38 at 35w1d by LMP c/w 10 wk US - here with preeclampsia, with BPs intermittently in the severe range. PIH labs this morning in the normal range, and strangely p/c has normalized ( was 2.2 yesterday). Plan:1) s/p betamethasone #1 last night - plan #2 tonight at 1920 2) MFM consult today - has already had growth ultrasound. Will make plan after MFM input. Continue in house observation for now. May need to consider anti-HTN medication. Norma Workman MD, [facility] 01/31/18 09:46 01/31/18 12:56 A/P: 38 at 35w1d with preeclampsia with severe features - diagnosis confirmed by Dr. Finch, [facility]. Will proceed with induction of labor, with mag sulfate for seizure prophylaxis. PCN for GBS unknown and . Will ripen cervix with buccal misoprostil to start. Norma Workman MD, [facility] 01/31/18 14:36 A/P: 38 at 35w1d - undergoing IOL for preeclampsia with severe features. Misoprostil #1 buccally given at 1500 - reviewed options and pt would like to continue with this for now - is having mild contractions. Continue magsulfate seizure prophylaxis - tolerating well so far. Cont PCN for , unknown GBS status (still pending). Betamethasone #2 given Omid Workman MD 01/31/18 20:02 A/P: 37 at 35w1d - undergoing IOL for preeclampsia with severe features, good urine output, BPs stable. 1) Transcervical balloon catheter placed digitally - 60ml in uterine balloon, 40ml in vaginal balloon, will start pitocin (has been over 4 hours since 2nd dose of misoprostil buccally. 2) Cont Magsulfate for seizure prophylaxis 3) Cont PCN for GBS pos 4) S/p betameth #2 at 1930 tonight 01/31/18 23:42 02/01/18 03:31 A/P:38 at 35w2d, IOL for preeclampsia with severe features, now comfortable with epidural and sleeping, good urine output 1) BPs stabilized and lower after epidural - was about to give labetolol IV when asked for epidural and Dr. Gardner, anesthesia, recommended waiting until after epidural. Continue pitocin and balloon catheter still in place. 2) Cont Magsulfate 3) GBS pos - cont PCN 4) s/p betameth x 2 Omid Workman MD 02/01/18 06:34 A/P: 38 at 35w2d, IOL for preeclampsia with severe features, stable BPs, good urine output, min progress in labor 1)BPs stable 140s/80s - cont pitocin (at 20), balloon catheter still in place 2) Cont mag sulfate 3) GBS pos - cont PCN q 4 4) s/p betameth x 2 Norma Workman MD Subjective/Intrapartum Course: Pt doing well. Good FM, no VB, no LOF. Not feeling any contractions. Currently has a mild PARKER, no vis changes, no epigastric pain, no RUQ pain. 01/31/18 10:20 01/31/18 13:00 Pt resting comfortably. Still with a mild PARKER. 01/31/18 20:09 Pt having some anxiety - was concerned she was having palpitations, then was feeling chest tightness, but after more discussion -was feeling this tightness when she was having a contraction on the monitor, but was not aware of it. No PARKER currently, no vis changes, no dyspnea. Feels tired. No vis changes. 01/31/18 23:48 Pt doing well, though still very anxious. Still interprets the beginning of a contraction as some chest tightness, but no longer as anxiety producing since she knows they are contractions. No PARKER, no vis changes, no dyspnea. 02/01/18 03:34 Pt currently sleeping. 02/01/18 06:37 Pt has been sleeping, comfortably. No chest pain, no dyspnea, no PARKER. notices contractions very mildly after epidural. Objective: 01/31/18 06:15 01/31/18 06:15 Patient ABO/Rh O POSITIVE 01/31/18 13:55 Uric Acid 6.3 mg/dL (2.5-6.8) 01/31/18 06:15 Total Bilirubin 0.2 mg/dL (0.1-1.4) 01/31/18 06:15 Conjugated Bilirubin 0.1 mg/dL (0.0-0.5) 01/31/18 06:15 Unconjugated Bilirubin 0.1 mg/dL (0.0-1.1) 01/31/18 06:15 AST 15 IU/L (14-46) 01/31/18 06:15 ALT 16 IU/L (9-52) 01/31/18 06:15 Lactate Dehydrogenase 427 IU/L (313-618) 01/31/18 06:15 Group B Strep DNA POSITIVE (NEGATIVE) H 01/30/18 19:15 gen - pleasant, NAD CV - RRR chest - CTAB abd - gravid, soft, NT ext - SCDs in place. Cook catheter stil in place after a little tension EKG - was reviewed by a hospitalist - no change from prior EKG, noral sinus rhythm - Contraction Pattern Assessment Current Contraction Pattern: Regular (q5-7), Irregular (q2-6 wtih intermittent coupling, pitocin currently at 20miu/hr) - FHR Assessment Martinez FHR (bpm): 120 FHR Pattern Variability: Moderate FHR Category: 1 - Procedures Non-surgical Procedures: Other (Specify) (Cook transcervical balloon catheter placed, 60ml U, 40ml V. ) Oxytocin Orders Assessment - Pre-Induction/Augmentation Assessment Gestational Age: 35 week(s) and 0 day(s) ICD10 Worksheet Patient Problems: Problems Problem Status Onset Preeclampsia Acute Severe pre-eclampsia Acute Severe pre-eclampsia Acute - ICD10 Problem Qualifiers (1) Preeclampsia Qualifiers: Trimester: third trimester Qualified Code(s): O14.93 - Unspecified pre- eclampsia, third trimester (2) Severe pre-eclampsia (3) Severe pre-eclampsia
[2018-02-01] MEDS: LR 1,000 ML IV SCH (07:48)
--- NOTE | 2018-02-01 08:51 | OBPROG ---
Labor Progress Note Assessment/Plan: Assessment: IUP at 35w2d induction for preeclampsia with severe features with B/P up to 160s/90s, labs normal except anemia, UOP nl on mgso4, pitocin and cook catheter removed this am. GBS+, on PCN q 4 hrs, AROM - clear/old blood h/o asthma, anxiety, hypothyroid, h/o SVT - nl ECHO (SVT resolved) TINY - still feels some aching/twinges B/P 130-140s/80-90s after TINY Plan: Cont Pit/Mg/PCN, now with AROM, will recheck in 2-[address] IUPC if no change 02/01/18 08:34 Subjective/Intrapartum Course: Pt doing well. Good FM, no VB, no LOF. Not feeling any contractions. Currently has a mild PARKER, no vis changes, no epigastric pain, no RUQ pain. 01/31/18 10:20 01/31/18 13:00 Pt resting comfortably. Still with a mild PARKER. 01/31/18 20:09 Pt having some anxiety - was concerned she was having palpitations, then was feeling chest tightness, but after more discussion -was feeling this tightness when she was having a contraction on the monitor, but was not aware of it. No PARKER currently, no vis changes, no dyspnea. Feels tired. No vis changes. 01/31/18 23:48 Pt doing well, though still very anxious. Still interprets the beginning of a contraction as some chest tightness, but no longer as anxiety producing since she knows they are contractions. No PARKER, no vis changes, no dyspnea. 02/01/18 03:34 Pt currently sleeping. 02/01/18 06:37 Pt has been sleeping, comfortably. No chest pain, no dyspnea, no PARKER. notices contractions very mildly after epidural. 02/01/18 08:51 Pt reports episodes of sleep but felt disrupted and not really rested. No HAs or SOB or chest pain. occas twinges and pressure in pelvis. Feels eyes are ' heavy' - blurry vision but doesn't have in contacts. Has been ketty sips of water/ice - no nausea. Reviewed plan with pt and Abhishek...will have DIRECTOR DIGITAL STRATEGY visit again. Objective: 01/31/18 06:15 01/31/18 06:15 Patient ABO/Rh O POSITIVE 01/31/18 13:55 Uric Acid 6.3 mg/dL (2.5-6.8) 01/31/18 06:15 Total Bilirubin 0.2 mg/dL (0.1-1.4) 01/31/18 06:15 Conjugated Bilirubin 0.1 mg/dL (0.0-0.5) 01/31/18 06:15 Unconjugated Bilirubin 0.1 mg/dL (0.0-1.1) 01/31/18 06:15 AST 15 IU/L (14-46) 01/31/18 06:15 ALT 16 IU/L (9-52) 01/31/18 06:15 Lactate Dehydrogenase 427 IU/L (313-618) 01/31/18 06:15 Group B Strep DNA POSITIVE (NEGATIVE) H 01/30/18 19:15 - SVE Dilation (cm): 4 Effacement (%): 80 Station: -2 Membranes: AROM Amniotic Fluid Color: Clear (with old blood) - Contraction Pattern Assessment Current Contraction Pattern: Regular (q5-7), Irregular (q 2- 6 with pit at 20 mu /min) - FHR Assessment Martinez FHR (bpm): 110 FHR Pattern Variability: Moderate FHR Category: 1 - Procedures Non-surgical Procedures: Amniotomy (AROM at 7:38, Cook cath removed right before), Other (Specify) ([employer] transcervical balloon catheter placed, 60ml U, 40ml V. ) Oxytocin Orders Assessment - Pre-Induction/Augmentation Assessment Gestational Age: 35 week(s) and 0 day(s) ICD10 Worksheet Patient Problems: Problems Problem Status Onset Preeclampsia Acute Severe pre-eclampsia Acute Severe pre-eclampsia Acute
--- NOTE | 2018-02-01 10:25 | CPEKG ---
Test Reason : OPEN Blood Pressure : / mmHG Vent. Rate : 085 BPM Atrial Rate : 084 BPM P-R Int : 158 ms QRS Dur : 089 ms QT Int : 373 ms P-R-T Axes : 050 034 -10 degrees QTc Int : 444 ms Sinus rhythm Borderline T abnormalities, inferior leads Confirmed by Titi Moss ([id number]) on 02/01/2018 10:25:37 AM Referred By: Confirmed By:Titi Moss
--- NOTE | 2018-02-01 10:29 | OBPROG ---
Labor Progress Note Assessment/Plan: Assessment: IUP at 35w2d - NO CERVICAL CHANGE AFTER AROM - IUPC PLACED induction for preeclampsia with severe features with B/P up to 160s/90s, labs normal except anemia, UOP nl on mgso4, pitocin and cook catheter removed this am. GBS+, on PCN q 4 hrs, AROM - clear/old blood h/o asthma, anxiety, hypothyroid, h/o SVT - nl ECHO (SVT resolved) TINY - still feels some aching/twinges B/P 130-140s/79-80s Plan: Cont Pit/Mg/PCN, still /-2, IUPC placed and will cont increasing pit prn 02/01/18 08:34 02/01/18 10:25 Subjective/Intrapartum Course: Pt doing well. Good FM, no VB, no LOF. Not feeling any contractions. Currently has a mild PARKER, no vis changes, no epigastric pain, no RUQ pain. 01/31/18 10:20 01/31/18 13:00 Pt resting comfortably. Still with a mild PARKER. 01/31/18 20:09 Pt having some anxiety - was concerned she was having palpitations, then was feeling chest tightness, but after more discussion -was feeling this tightness when she was having a contraction on the monitor, but was not aware of it. No PARKER currently, no vis changes, no dyspnea. Feels tired. No vis changes. 01/31/18 23:48 Pt doing well, though still very anxious. Still interprets the beginning of a contraction as some chest tightness, but no longer as anxiety producing since she knows they are contractions. No PARKER, no vis changes, no dyspnea. 02/01/18 03:34 Pt currently sleeping. 02/01/18 06:37 Pt has been sleeping, comfortably. No chest pain, no dyspnea, no PARKER. notices contractions very mildly after epidural. 02/01/18 08:51 Pt reports episodes of sleep but felt disrupted and not really rested. No HAs or SOB or chest pain. occas twinges and pressure in pelvis. Feels eyes are ' heavy' - blurry vision but doesn't have in contacts. Has been ketty sips of water/ice - no nausea. Reviewed plan with pt and Abhishek...will have FABRICATION AND ASSEMBLY SUPERVISOR visit again. 02/01/18 10:27 Pt doing ok - occas cramps but tolerable. exam showed no change, still /-2 , pt agrees to IUPC - placed without problems - also catalan bulb wedged under head and pushed upwards - pt was uncomf with that. UOP very good. no PARKER or n/ v Objective: 01/31/18 06:15 01/31/18 06:15 Patient ABO/Rh O POSITIVE 01/31/18 13:55 Uric Acid 6.3 mg/dL (2.5-6.8) 01/31/18 06:15 Total Bilirubin 0.2 mg/dL (0.1-1.4) 01/31/18 06:15 Conjugated Bilirubin 0.1 mg/dL (0.0-0.5) 01/31/18 06:15 Unconjugated Bilirubin 0.1 mg/dL (0.0-1.1) 01/31/18 06:15 AST 15 IU/L (14-46) 01/31/18 06:15 ALT 16 IU/L (9-52) 01/31/18 06:15 Lactate Dehydrogenase 427 IU/L (313-618) 01/31/18 06:15 Group B Strep DNA POSITIVE (NEGATIVE) H 01/30/18 19:15 - SVE Dilation (cm): 4 Effacement (%): 80 Station: -2 Membranes: AROM Amniotic Fluid Color: Clear (with old blood) - Contraction Pattern Assessment Current Contraction Pattern: Regular (q 3-6 min on 24 mu/min pit), Other ( Specify) (with IUPC adeq ctxn strength - will increase pit to help freq) - Procedures Non-surgical Procedures: Amniotomy (AROM at 7:38, Cook cath removed right before), Other (Specify) ([employer] transcervical balloon catheter placed, 60ml U, 40ml V. ) Oxytocin Orders Assessment - Pre-Induction/Augmentation Assessment Gestational Age: 35 week(s) and 0 day(s) ICD10 Worksheet Patient Problems: Problems Problem Status Onset Preeclampsia Acute Severe pre-eclampsia Acute Severe pre-eclampsia Acute
[2018-02-01] MEDS: RANITIDINE HCL 150 MG/10 ML UDCUP PO SCH ×2 (11:27→13:35)
--- NOTE | 2018-02-01 18:24 | OBPROG ---
Labor Progress Note Assessment/Plan: Assessment: IUP at 35w2d - RN DOCUMENTED CHANGE AT 13:45 OF /-2, CURRENTLY induction for preeclampsia with severe features with B/P up to 160s/90s, labs normal except anemia, UOP nl on mgso4, pitocin, IUPC GBS+, on PCN q 4 hrs, AROM - clear/old blood h/o asthma, anxiety, hypothyroid, h/o SVT - nl ECHO (SVT resolved) TINY - still feels some aching/twinges B/P 130-140s/79-80s Plan: Cont Pit/Mg/PCN, 02/01/18 08:34 02/01/18 10:25 02/01/18 18:20 Subjective/Intrapartum Course: Pt doing well. Good FM, no VB, no LOF. Not feeling any contractions. Currently has a mild PARKER, no vis changes, no epigastric pain, no RUQ pain. 01/31/18 10:20 01/31/18 13:00 Pt resting comfortably. Still with a mild PARKER. 01/31/18 20:09 Pt having some anxiety - was concerned she was having palpitations, then was feeling chest tightness, but after more discussion -was feeling this tightness when she was having a contraction on the monitor, but was not aware of it. No PARKER currently, no vis changes, no dyspnea. Feels tired. No vis changes. 01/31/18 23:48 Pt doing well, though still very anxious. Still interprets the beginning of a contraction as some chest tightness, but no longer as anxiety producing since she knows they are contractions. No PARKER, no vis changes, no dyspnea. 02/01/18 03:34 Pt currently sleeping. 02/01/18 06:37 Pt has been sleeping, comfortably. No chest pain, no dyspnea, no PARKER. notices contractions very mildly after epidural. 02/01/18 08:51 Pt reports episodes of sleep but felt disrupted and not really rested. No HAs or SOB or chest pain. occas twinges and pressure in pelvis. Feels eyes are ' heavy' - blurry vision but doesn't have in contacts. Has been ketty sips of water/ice - no nausea. Reviewed plan with pt and Abhishek...will have GLASS EDGER visit again. 02/01/18 10:27 Pt doing ok - occas cramps but tolerable. exam showed no change, still /-2 , pt agrees to IUPC - placed without problems - also catalan bulb wedged under head and pushed upwards - pt was uncomf with that. UOP very good. no PARKER or n/ v 02/01/18 18:24 Pt denies PARKER but now noticing more Mg sideeffects. Blurry vision and feeling very heavy and tired - can't keep eyes open and worries she won't have energy to push. Was excited by change at 13:45 of /-2 and now /0 --pt frustrated by slow change but reassured. Has window of pain in lower abd. Objective: 01/31/18 06:15 01/31/18 06:15 Patient ABO/Rh O POSITIVE 01/31/18 13:55 Uric Acid 6.3 mg/dL (2.5-6.8) 01/31/18 06:15 Total Bilirubin 0.2 mg/dL (0.1-1.4) 01/31/18 06:15 Conjugated Bilirubin 0.1 mg/dL (0.0-0.5) 01/31/18 06:15 Unconjugated Bilirubin 0.1 mg/dL (0.0-1.1) 01/31/18 06:15 AST 15 IU/L (14-46) 01/31/18 06:15 ALT 16 IU/L (9-52) 01/31/18 06:15 Lactate Dehydrogenase 427 IU/L (313-618) 01/31/18 06:15 Group B Strep DNA POSITIVE (NEGATIVE) H 01/30/18 19:15 - SVE Dilation (cm): 8 Effacement (%): 90 Station: 0 Membranes: AROM Amniotic Fluid Color: Clear (with old blood) - Contraction Pattern Assessment Current Contraction Pattern: Regular (q 4-5 min on 30 mu/min pit, mostly adeq MVUs by IUPC) - Procedures Non-surgical Procedures: Amniotomy (AROM at 7:38, Cook cath removed right before), Other (Specify) Oxytocin Orders Assessment - Pre-Induction/Augmentation Assessment Gestational Age: 35 week(s) and 0 day(s) ICD10 Worksheet Patient Problems: Problems Problem Status Onset Preeclampsia Acute Severe pre-eclampsia Acute Severe pre-eclampsia Acute
--- NOTE | 2018-02-01 20:08 | SOAPPROG ---
SOAP Progress Note Assessment/Plan: Assessment: Severe breakthrough labor pain as patient becomes complete. Plan: 02/01/18 20:05 Epidural bolus given for severe breakthrough pain. Patient has had a focal area of pain not well anesthetized. Recent check reveals patient is complete. Bupivicaine .25% 8 cc with saline 4 cc bolus given. Patient more comfortable following bolus. Basal rate increased from 8cc/hr to 10 cc/hr. Subjective: Labor epidural functioning well. Patient has used increased bolus but still has an area of pain in low pelvis. Objective: Laboratory Results 01/31/18 06:15 01/31/18 06:15 01/31/18 02/01/18 02/02/18 05:59 05:59 05:59 Intake Total 1065 1125 Output Total 3075 1125 ICD10 Worksheet Patient Problems: Problems Problem Status Onset Preeclampsia Acute Severe pre-eclampsia Acute Severe pre-eclampsia Acute
[2018-02-01] MEDS: OXYTOCIN/RINGERS LACTATE 500 ML IV SCH (22:26)
[2018-02-02] MEDS ORDERED: DOCUSATE SODIUM 100 MG CAP PO PRN (01:03)
--- NOTE | 2018-02-02 01:14 | OBDEL ---
Info Type: Vaginal Presentation at Delivery: Vertex L&D Analgesia/Anesthesia Type: Epidural GBS+: Yes (PCN treated with multiple doses) Intrapartum Medications: Generic Name Dose Route Start Last Admin Trade Name Benjamín PRN Reason Stop Dose Admin Magnesium Sulfate 500 mls @ 50 mls/hr 01/31/18 13:30 02/01/18 20:57 Magnesium Sulfate 20 Gm/ 500 Ml (Premix) IV 07/30/18 13:29 500 mls CONT JUAN J Administration Lactated Ringer's 1,000 mls @ 75 mls/hr 01/31/18 18:00 02/01/18 07:48 Lr IV 07/30/18 17:59 1,000 mls CONT JUAN J Administration Oxytocin/Lactated Ringer's 500 mls @ 0 mls/hr 01/31/18 23:45 02/01/18 22:26 Pitocin 30 Units/Lr (Premix) IV 07/30/18 23:44 500 mls CONT JUAN J Administration Protocol Per Protocol Fentanyl 200 mcg/ Bupivacaine 100 mls @ 0 mls/hr 02/01/18 02:30 02/01/18 10: 56 HCl 20 ml/ Sodium Chloride EP 02/11/18 02:29 100 mls CONT JUAN J Administration Protocol As Directed Levothyroxine Sodium 150 mcg 01/31/18 06:00 02/01/18 06:07 Synthroid PO 07/30/18 05:59 150 mcg DAILY AT 6AM JUAN J Administration Ranitidine HCl 150 mg 01/31/18 10:45 02/01/18 13:35 Zantac PO 07/30/18 10:44 150 mg BID JUAN J Administration Discontinued Medications Generic Name Dose Route Start Last Admin Trade Name Benjamín PRN Reason Stop Dose Admin Betamethasone Acet/Betameth SodPhos 12 mg 01/30/18 19:18 01/30/18 19:39 Celestone Im Syringe IM 01/30/18 19:19 12 mg ONCE ONE Administration Betamethasone Acet/Betameth SodPhos 12 mg 01/31/18 19:19 01/31/18 19:42 Celestone Im Syringe IM 01/31/18 19:20 12 mg ONCE ONE Administration Magnesium Sulfate 100 mls @ 200 mls/hr 01/31/18 13:14 01/31/18 14:35 Magnesium Sulf 4 Gm (Premix) IV 01/31/18 13:43 100 mls ONCE ONE Administration Penicillin G Potassium 5,000, 160 mls @ 160 mls/hr 01/31/18 14:28 01/31/18 14 :54 000 unit/ Dextrose IV 01/31/18 15:27 160 mls EDNOW ONE Administration Protocol Penicillin G Potassium 2,500, 155 mls @ 155 mls/hr 01/31/18 20:00 02/01/18 21 :46 000 unit/ Dextrose IV 03/02/18 19:59 Not Given Q4H JUAN J Fentanyl 200 mcg/ Bupivacaine 100 mls @ 0 mls/hr 02/01/18 01:30 02/01/18 07: 22 HCl 20 ml/ Sodium Chloride EP 02/01/18 01:31 Not Given ONCALL ONE Protocol As Directed Misoprostol 50 mcg 01/31/18 14:13 01/31/18 19:09 Cytotec PO 07/30/18 14:12 50 mcg PRN PRN Administration cervical ripening - Hospital Course Intrapartum: Pt doing well. Good FM, no VB, no LOF. Not feeling any contractions. Currently has a mild PARKER, no vis changes, no epigastric pain, no RUQ pain. 01/31/18 10:20 01/31/18 13:00 Pt resting comfortably. Still with a mild PARKER. 01/31/18 20:09 Pt having some anxiety - was concerned she was having palpitations, then was feeling chest tightness, but after more discussion -was feeling this tightness when she was having a contraction on the monitor, but was not aware of it. No PARKER currently, no vis changes, no dyspnea. Feels tired. No vis changes. 01/31/18 23:48 Pt doing well, though still very anxious. Still interprets the beginning of a contraction as some chest tightness, but no longer as anxiety producing since she knows they are contractions. No PARKER, no vis changes, no dyspnea. 02/01/18 03:34 Pt currently sleeping. 02/01/18 06:37 Pt has been sleeping, comfortably. No chest pain, no dyspnea, no PARKER. notices contractions very mildly after epidural. 02/01/18 08:51 Pt reports episodes of sleep but felt disrupted and not really rested. No HAs or SOB or chest pain. occas twinges and pressure in pelvis. Feels eyes are ' heavy' - blurry vision but doesn't have in contacts. Has been ketty sips of water/ice - no nausea. Reviewed plan with pt and Abhishek...will have CNA INSTRUCTOR visit again. 02/01/18 10:27 Pt doing ok - occas cramps but tolerable. exam showed no change, still 4/80/-2 , pt agrees to IUPC - placed without problems - also catalan bulb wedged under head and pushed upwards - pt was uncomf with that. UOP very good. no PARKER or n/ v 02/01/18 18:24 Pt denies PARKER but now noticing more Mg sideeffects. Blurry vision and feeling very heavy and tired - can't keep eyes open and worries she won't have energy to push. Was excited by change at 13:45 of 6/80/-2 and now 8/90/0 --pt frustrated by slow change but reassured. Has window of pain in lower abd. Indications for Delivery: Preeclampsia Severe Vaginal Delivery - Delivery Provider Delivery Physician/CNM: Morena Krishnamurthy - Labor and Delivery Onset of Contractions Date: 02/01/18 Onset of Contractions Time: 02:00 Onset of Contractions Type: Induced Rupture of Membranes Date: 02/01/18 Rupture of Membranes Time: 07:38 Rupture of Membranes Type: Artificial Amniotic Fluid Color: Clear (with old blood) Dilation Complete Date: 02/01/18 Dilation Complete Time: 19:35 Placenta Delivery Date: 02/01/18 Placenta Delivery Time: 23:11 Total Hours of Labor: 21 Non-surgical Procedures: Amniotomy (AROM at 7:38, Cook cath removed right before), Other (Specify) Laceration: Other (Specify) (none) Vaginal Sponge Count Correct: Yes Vaginal Needle Count Correct: Yes Vaginal Sweep Performed: Yes EBL: 450 Delivery Events: Nuchal Cord (x1 loose and reduced) - Medications Labor Augmentation/Induction Methods Used: Pitocin, Misoprostol, Catalan Bulb Labor Augmentation/Induction Indication: Other (Specify) (preeclampsia) [place] Data PAUL: 03/06/18 Gestational Age: 35 week(s) and 3 day(s) Martinez Delivery Date: 02/01/18 Delivery Time: 23:02 Sex of Infant: Male Score (1 Min): 3 Score (5 Min): 6 Score (10 Min): 7 ICD10 Worksheet Patient Problems: Problems Problem Status Onset (spontaneous vaginal delivery) Acute Severe pre-eclampsia Acute
[2018-02-02] MEDS: RANITIDINE HCL 150 MG/10 ML UDCUP PO SCH ×3 (01:16→23:07)
[2018-02-02] MEDS: PENICILLIN G POTASSIUM 2,500,000 UNIT in D5W 150 ML IV SCH (01:16)
[2018-02-02] MEDS: ACETAMINOPHEN 325 MG TAB PO SCH ×5 (03:57→21:57)
[2018-02-02] MEDS: LEVOTHYROXINE 150 MCG TAB PO SCH (05:38)
[2018-02-02] MEDS: NIFEdipine ER 30 MG TAB PO SCH (06:59)
[2018-02-02] MEDS: Mag Sulf 500 ML IV SCH (07:00)
[2018-02-02] MEDS ORDERED: LABETALOL HCL 5 MG/ML 20 ML MDV IVP ONE (11:24)
[2018-02-02] MEDS ORDERED: QVAR 80 MCG PO SCH (11:30)
--- NOTE | 2018-02-02 11:32 | OBPP ---
Progress Note Assessment/Plan: Assessment: 1) s/p PPD # 0.5 - pt is stable 2) IOL at 35 3/7 weeks secondary to severe preeclampsia - on MgSO4 3) Anemia - pt is asymptomatic Plan: Continue routine pp care Cont MgSO4 until 2300 this pm-24 hours post delivery UO is good; cont with strict I/Os and fluid restriction BPs labile, pt was started on Procardia 30 XL this am; will add Labetalol IV if BPs >160/105 Will check PIH labs Will cont to closely monitor Transfer to pp after MgSO4 discontinued since baby is in NICU 02/02/18 11:31 Subjective/ Course: 02/02/18 11:38 Pt seen and examined. Pt feels lousy on the MgSO4. Denied any HAs, visual changes or RUQ. She is having some epigastric pain with radiation to her back and thinks it is from pulling with towel. Cramping is controlled with Motrin. Mod lochia. Denies any f/c/n/v/CP or SOB. Pumping is going well. Baby is in NICU. Objective: 01/31/18 06:15 01/31/18 06:15 Patient ABO/Rh O POSITIVE 01/31/18 13:55 Uric Acid 6.3 mg/dL (2.5-6.8) 01/31/18 06:15 Total Bilirubin 0.2 mg/dL (0.1-1.4) 01/31/18 06:15 Conjugated Bilirubin 0.1 mg/dL (0.0-0.5) 01/31/18 06:15 Unconjugated Bilirubin 0.1 mg/dL (0.0-1.1) 01/31/18 06:15 AST 15 IU/L (14-46) 01/31/18 06:15 ALT 16 IU/L (9-52) 01/31/18 06:15 Lactate Dehydrogenase 427 IU/L (313-618) 01/31/18 06:15 Group B Strep DNA POSITIVE (NEGATIVE) H 01/30/18 19:15 Temp Pulse Resp BP Pulse Ox 138/67 H 02/02/18 06:59 Uterine Position/Fundal Height: Umbilicus -1 Uterine Tone: Firm Physical Exam - Physical Exam General Appearance: alert, no apparent distress, mild distress Respiratory: lungs clear, normal breath sounds Cardiac/Chest: regular rate, rhythm Abdomen: normal bowel sounds, non-tender, soft Extremities: non-tender, normal inspection, pedal edema DTR- Lower Extremities: Plantar (R): 1+, Plantar (L): 1+ Skin: normal color, warm/dry Neuro/Psych: alert, normal mood/affect, oriented x 3
[2018-02-02] MEDS: IBUPROFEN 600 MG TAB PO SCH ×3 (11:50→20:15)
[2018-02-02] MEDS: BECLOMETHASONE QVAR 80 REDIHALER 120 INH/10.6 GM MDI IH SCH (16:16)
[2018-02-02 16:21] LABS: PLATELET COUNT 190 10^3/uL (150-400)
[2018-02-02] MEDS: FERRO-SEQUELS 65 MG TAB.ER PO SCH (21:41)
[2018-02-02] MEDS: PROCTOFOAM HC 10 GM CAN PR SCH (21:55)
[2018-02-03] MEDS: PROCTOFOAM HC 10 GM CAN PR SCH ×3 (01:30→19:43)
[2018-02-03] MEDS: ACETAMINOPHEN 325 MG TAB PO SCH ×4 (01:53→19:30)
[2018-02-03] MEDS: IBUPROFEN 600 MG TAB PO SCH ×4 (04:46→19:30)
[2018-02-03 05:11] LABS: PLATELET COUNT 183 10^3/uL (150-400)
[2018-02-03] MEDS: LEVOTHYROXINE 150 MCG TAB PO SCH (05:25)
[2018-02-03] MEDS: NIFEdipine ER 30 MG TAB PO SCH (09:47)
[2018-02-03] MEDS: FERRO-SEQUELS 65 MG TAB.ER PO SCH (09:47)
[2018-02-03] MEDS: RANITIDINE HCL 150 MG/10 ML UDCUP PO SCH ×2 (11:12→22:13)
[2018-02-03] MEDS: BECLOMETHASONE QVAR 80 REDIHALER 120 INH/10.6 GM MDI IH SCH (11:12)
--- NOTE | 2018-02-03 12:34 | OBPP ---
Progress Note Assessment/Plan: Assessment: PPD 2 s/p preeclampsia s/p Magnesium, increased b/p yesterday and started on Procardia XL anemia Plan: will keep in house today and watch b/p control on procardia, working on pumping/ latching. Plan d/[place] tomorrow 02/01/18 08:34 02/01/18 10:25 02/01/18 18:20 02/03/18 12:30 Subjective/ Course: 02/02/18 11:38 Pt seen and examined. Pt feels lousy on the MgSO4. Denied any HAs, visual changes or RUQ. She is having some epigastric pain with radiation to her back and thinks it is from pulling with towel. Cramping is controlled with Motrin. Mod lochia. Denies any f/c/n/v/CP or SOB. Pumping is going well. Baby is in NICU. 02/03/18 12:34 Pt feels so much better after getting off mag. Still feels a bit of blurry vision. Working on pumping and trying to have baby latch too. bld ok - like menses. urinating fine. not needing ibu/tyl. Reviewed improved labs and AST and LDH improved. 02/03/18 12:36 Objective: 02/03/18 05:00 02/03/18 05:00 Patient ABO/Rh O POSITIVE 01/31/18 13:55 Uric Acid 7.1 mg/dL (2.5-6.8) H 02/03/18 05:00 Total Bilirubin 0.2 mg/dL (0.1-1.4) 02/03/18 05:00 Conjugated Bilirubin 0.2 mg/dL (0.0-0.5) 02/03/18 05:00 Unconjugated Bilirubin 0.0 mg/dL (0.0-1.1) 02/03/18 05:00 AST 54 IU/L (14-46) H 02/03/18 05:00 ALT 26 IU/L (9-52) 02/03/18 05:00 Lactate Dehydrogenase 790 IU/L (313-618) H 02/03/18 05:00 Group B Strep DNA POSITIVE (NEGATIVE) H 01/30/18 19:15 Temp Pulse Resp BP Pulse Ox 36.7 C 86 16 132/95 H 94 02/03/18 05:05 02/03/18 05:05 02/03/18 05:05 02/03/18 09:47 02/03/18 05:05 Uterine Position/Fundal Height: Umbilicus -1 Uterine Tone: Firm Physical Exam - Physical Exam Abdomen: non-tender (approp post del soreness), soft, other (firm and lochia normal) Extremities: non-tender, pedal edema (minimal) Skin: normal color, warm/dry Neuro/Psych: alert, normal mood/affect
--- NOTE | 2018-02-03 13:09 | POSTANESTH ---
Post Anesthetic Evaluation Cardiovascular Status: Normal, Stable Respiratory Status: Normal, Stable Level of Consciousness/Mental Status: Can Participate in Eval, Alert and Oriented Pain Control: Adequate, Prn Tx Ordered Nausea/Vomiting Control: Adequate, Prn Tx Ordered Complications Possibly Related to Anesthesia: None Noted Notes: Patient reports that epidural unfortunately did not cover the area where she felt her contractions most. She denies any adverse effects, is able to ambulate and tolerate PO. Overall doing well now.
[2018-02-04] MEDS: ACETAMINOPHEN 325 MG TAB PO SCH ×2 (03:30→10:22)
[2018-02-04] MEDS: IBUPROFEN 600 MG TAB PO SCH ×2 (03:30→10:22)
[2018-02-04] MEDS: LEVOTHYROXINE 150 MCG TAB PO SCH (05:34)
--- NOTE | 2018-02-04 08:05 | OBPP ---
Progress Note Assessment/Plan: Assessment: 37 at 35w1d by LMP c/w 10 wk US - here with preeclampsia, with BPs intermittently in the severe range. PIH labs this morning in the normal range, and strangely p/c has normalized ( was 2.2 yesterday). Plan:1) s/p betamethasone #1 last night - plan #2 tonight at 1920 2) MFM consult today - has already had growth ultrasound. Will make plan after MFM input. Continue in house observation for now. May need to consider anti-HTN medication. Norma Workman MD, [facility] 01/31/18 09:46 01/31/18 12:56 A/P: 37 at 35w1d with preeclampsia with severe features - diagnosis confirmed by Dr. Finch, [facility]. Will proceed with induction of labor, with mag sulfate for seizure prophylaxis. PCN for GBS unknown and . Will ripen cervix with buccal misoprostil to start. Norma Workman MD, [facility] 01/31/18 14:36 A/P: 37 at 35w1d - undergoing IOL for preeclampsia with severe features. Misoprostil #1 buccally given at 1500 - reviewed options and pt would like to continue with this for now - is having mild contractions. Continue magsulfate seizure prophylaxis - tolerating well so far. Cont PCN for , unknown GBS status (still pending). Betamethasone #2 given Omid Workman MD 01/31/18 20:02 A/P: 37 at 35w1d - undergoing IOL for preeclampsia with severe features, good urine output, BPs stable. 1) Transcervical balloon catheter placed digitally - 60ml in uterine balloon, 40ml in vaginal balloon, will start pitocin (has been over 4 hours since 2nd dose of misoprostil buccally. 2) Cont Magsulfate for seizure prophylaxis 3) Cont PCN for GBS pos 4) S/p betameth #2 at 1930 tonight 01/31/18 23:42 02/01/18 03:31 A/P:37 at 35w2d, IOL for preeclampsia with severe features, now comfortable with epidural and sleeping, good urine output 1) BPs stabilized and lower after epidural - was about to give labetolol IV when asked for epidural and Dr. Gardner, anesthesia, recommended waiting until after epidural. Continue pitocin and balloon catheter still in place. 2) Cont Magsulfate 3) GBS pos - cont PCN 4) s/p betameth x 2 Omid Workman MD 02/01/18 06:34 A/P: 37 at 35w2d, IOL for preeclampsia with severe features, stable BPs, good urine output, min progress in labor 1)BPs stable 140s/80s - cont pitocin (at 20), balloon catheter still in place 2) Cont mag sulfate 3) GBS pos - cont PCN q 4 4) s/p betameth x 2 Norma Workman MD 02/04/18 11:45 A/P: 37 [id number], PPD#3 s/p at 35w2d, after IOL for preeclampsia with severe features, with persistently elevated blood pressures, even on Procardia 30mg XL. Doing well pp. Will dc home / boarding status. Reviewed ssx pp depression. Will need BP check in the office later this week. see dc summary. Norma Workman MD, FACOG, [facility] Subjective/ Course: 02/02/18 11:38 Pt seen and examined. Pt feels lousy on the MgSO4. Denied any HAs, visual changes or RUQ. She is having some epigastric pain with radiation to her back and thinks it is from pulling with towel. Cramping is controlled with Motrin. Mod lochia. Denies any f/c/n/v/CP or SOB. Pumping is going well. Baby is in NICU. 02/03/18 12:34 Pt feels so much better after getting off mag. Still feels a bit of blurry vision. Working on pumping and trying to have baby latch too. bld ok - like menses. urinating fine. not needing ibu/tyl. Reviewed improved labs and AST and LDH improved. 02/03/18 12:36 02/04/18 11:49 Doing well. All blurry vision has resolved. Is ambulating, voiding, and ketty reg diet without difficulty. NO PARKER, no epigastric pain. Swelling has significantly decreased. Objective: 02/03/18 05:00 02/03/18 05:00 Patient ABO/Rh O POSITIVE 01/31/18 13:55 Uric Acid 7.1 mg/dL (2.5-6.8) H 02/03/18 05:00 Total Bilirubin 0.2 mg/dL (0.1-1.4) 02/03/18 05:00 Conjugated Bilirubin 0.2 mg/dL (0.0-0.5) 02/03/18 05:00 Unconjugated Bilirubin 0.0 mg/dL (0.0-1.1) 02/03/18 05:00 AST 54 IU/L (14-46) H 02/03/18 05:00 ALT 26 IU/L (9-52) 02/03/18 05:00 Lactate Dehydrogenase 790 IU/L (313-618) H 02/03/18 05:00 Group B Strep DNA POSITIVE (NEGATIVE) H 01/30/18 19:15 Temp Pulse Resp BP Pulse Ox 36.7 C 72 20 157/89 H 96 02/04/18 03:30 02/04/18 03:30 02/04/18 03:30 02/04/18 03:30 02/04/18 03:30 gen - pleasant, NAD CV - RRR chest - CTAB abd - soft, NT, fundus firm at u-2 ext - BLE no calf tenderness, trace pitting edema Uterine Position/Fundal Height: Umbilicus -2 Uterine Tone: Firm
[2018-02-04] MEDS: BECLOMETHASONE QVAR 80 REDIHALER 120 INH/10.6 GM MDI IH SCH (09:00)
[2018-02-04] MEDS: NIFEdipine ER 30 MG TAB PO SCH (09:21)
--- NOTE | 2018-02-04 09:56 | OBGCSDC ---
General Delivery Information - General Info : 2 Para: 1 Abortions: 1 Type: Vaginal L&D Analgesia/Anesthesia Type: Epidural Admission Date: 02/02/18 Labs: Patient ABO/Rh O POSITIVE 01/31/18 13:55 Hct 29.9 % (38.0-47.0) L 02/03/18 05:00 Group B Strep DNA POSITIVE (NEGATIVE) H 01/30/18 19:15 - Hospital Course Intrapartum: Pt doing well. Good FM, no VB, no LOF. Not feeling any contractions. Currently has a mild PARKER, no vis changes, no epigastric pain, no RUQ pain. 01/31/18 10:20 01/31/18 13:00 Pt resting comfortably. Still with a mild PARKER. 01/31/18 20:09 Pt having some anxiety - was concerned she was having palpitations, then was feeling chest tightness, but after more discussion -was feeling this tightness when she was having a contraction on the monitor, but was not aware of it. No PARKER currently, no vis changes, no dyspnea. Feels tired. No vis changes. 01/31/18 23:48 Pt doing well, though still very anxious. Still interprets the beginning of a contraction as some chest tightness, but no longer as anxiety producing since she knows they are contractions. No PARKER, no vis changes, no dyspnea. 02/01/18 03:34 Pt currently sleeping. 02/01/18 06:37 Pt has been sleeping, comfortably. No chest pain, no dyspnea, no PARKER. notices contractions very mildly after epidural. 02/01/18 08:51 Pt reports episodes of sleep but felt disrupted and not really rested. No HAs or SOB or chest pain. occas twinges and pressure in pelvis. Feels eyes are ' heavy' - blurry vision but doesn't have in contacts. Has been ketty sips of water/ice - no nausea. Reviewed plan with pt and Abhishek...will have BRIEF WRITER visit again. 02/01/18 10:27 Pt doing ok - occas cramps but tolerable. exam showed no change, still 80/-2 , pt agrees to IUPC - placed without problems - also catalan bulb wedged under head and pushed upwards - pt was uncomf with that. UOP very good. no PARKER or n/ v 02/01/18 18:24 Pt denies PARKER but now noticing more Mg sideeffects. Blurry vision and feeling very heavy and tired - can't keep eyes open and worries she won't have energy to push. Was excited by change at 13:45 of 680/-2 and now 890/0 --pt frustrated by slow change but reassured. Has window of pain in lower abd. : 02/02/18 11:38 Pt seen and examined. Pt feels lousy on the MgSO4. Denied any HAs, visual changes or RUQ. She is having some epigastric pain with radiation to her back and thinks it is from pulling with towel. Cramping is controlled with Motrin. Mod lochia. Denies any f/c/n/v/CP or SOB. Pumping is going well. Baby is in NICU. 02/03/18 12:34 Pt feels so much better after getting off mag. Still feels a bit of blurry vision. Working on pumping and trying to have baby latch too. bld ok - like menses. urinating fine. not needing ibu/tyl. Reviewed improved labs and AST and LDH improved. 02/03/18 12:36 Vaginal - Delivery Provider Delivery Physician/CNM: Morena Krishnamurthy - Diagnosis Labor: Induced Rupture of Membranes Type: Artificial Amniotic Fluid Color: Clear (with old blood) Laceration: Other (Specify) (none) Delivery Events: Nuchal Cord (x1 loose and reduced) - Procedures Non-surgical Procedures: Amniotomy (AROM at 7:38, Cook cath removed right before), Other (Specify) - Delivery Non-surgical Procedures: Amniotomy (AROM at 7:38, Cook cath removed right before), Other (Specify) EBL: 450 Data PAUL: 03/06/18 Gestational Age: 35 week(s) and 5 day(s) [place] Delivery Date: 02/01/18 Delivery Time: 23:02 Sex of Infant: Male Weight (gm): 2292 g Score (1 Min): 3 Score (5 Min): 6 Score (10 Min): 7 Discharge Information - Discharge Information Prescriptions: NIFEdipine ER [Adalat CC 30 mg (*)] 30 mg PO DAILY #30 tab Condition: Good Instruction/Follow Up: See Instruction Sheet, Four Weeks ([facility]), Six Weeks (full exam at [facility])
[2018-02-04] MEDS: FERRO-SEQUELS 65 MG TAB.ER PO SCH (10:22)
[2018-02-04] MEDS: RANITIDINE HCL 150 MG/10 ML UDCUP PO SCH (10:23)
[2018-02-04 16:30] VITALS: BP 149/91
== END 2018-02-04 14:22 | disposition home or self-care (01) | DRG 807 ==
LOC: FLD 15:50 → OBSVTOIN 02-02 07:42 → FOB 02-03 01:16
PROVIDERS: ADMIT Obstetrics & Gynecology; ATTEND Obstetrics & Gynecology
DX: O14.14 Severe pre-eclampsia complicating childbirth (principal); Z37.0 Single live birth; Z3A.35 35 weeks gestation of pregnancy; O99.824 Streptococcus B carrier state complicating childbirth; O69.82X0 Labor and delivery complicated by other cord entanglement, without compression, not applicable or unspecified; O99.284 Endocrine, nutritional and metabolic diseases complicating childbirth; E03.9 Hypothyroidism, unspecified; O99.344 Other mental disorders complicating childbirth; F43.10 Post-traumatic stress disorder, unspecified; F41.9 Anxiety disorder, unspecified
CPT/HCPCS: J0610; J0702; J2370; J2540; J2590; J3010; J3105; J3475

== ENCOUNTER 2018-04-19 08:51 | Day surgery (SDC) | payer OTHER ==
--- NOTE | 2018-04-18 15:21 | GHP ---
[f rep st] PREOP HISTORY AND PHYSICAL DATE OF ADMISSION: 04/19/2018 PREOPERATIVE DIAGNOSIS: Retained placenta. HISTORY OF PRESENT ILLNESS: The patient is a 37-year-old 2, para 1-0-1-1, who is 10 weeks po stpartum. She has had on and off spotting throughout her course. She had been induced at 34 weeks gestation for severe pre-eclampsia, and had an uncomplicated, spontaneous vaginal delivery. There was no mention of retained products of conception or retained placenta at time of delivery. A pelvic ultrasound was obtained on 04/16/2018, which showed a 2 x 2 cm echogenic foci at the fundus of the uterus with no flow. Probable retained products of conception were noted. Management options were reviewed with the patient. The patient is afebrile. She has no uterine tenderness. We discus sed options of medical management with Cytotec versus suction, dilation, and curettage. The patient is electing to proceed with suction, dilation, and curettage. Risks and benefits were reviewed exten sively with the patient, and patient will sign consent morning of surgery. MEDICAL HISTORY: History of migraines, history of asthma, history of hypothyroidism, history of live r adenoma which is benign and being followed by GI, anxiety, and history of panic attacks secondary t o traumatic event, unexplained infertility, episode of heart palpitations and a negative cardiology e valuation. MEDICATIONS: vitamins and levothyroxine. SURGICAL HISTORY: Rhinoplasty and wisdom teeth extraction. ALLERGIES: Codeine and erythromycin. SOCIAL HISTORY: Patient is . She is a nurse. She denies tobacco or drug use. She does drin k alcohol socially. FAMILY MEDICAL HISTORY: Noncontributory. LABEL PRINTER HISTORY: Menarche age 11. Periods every 24-28 days. She is a 2, para 1-0-1-1. In , she had a voluntary termination at 6 weeks . In 2017, she had a spontaneous vaginal del catia at 35 weeks gestation. She was induced for severe pre-eclampsia. The patient does have a hist ory of abnormal Pap smears in 2016, re-Pap was negative. She has a history of HPV in the past. She denies any history of any other sexually transmitted diseases. PHYSICAL EXAMINATION: VITAL SIGNS: The patient's vital signs are stable. GENERAL APPEARANCE: Aler t and oriented x3. MUSCULOSKELETAL: Grossly intact. NEURO: Grossly intact. HEART: Irregularly i rregular. LUNGS: Clear to auscultation bilaterally. ABDOMEN: Soft, nondistended, nontender. EXTR EMITIES: Reveal no calf tenderness or edema. PELVIC: Reveals a mobile midposition uterus with no a dnexal masses. Pelvic ultrasound has a 2 x 2 cm retained products of conception at the fundus. REVIEW OF SYSTEMS: 10-point review of systems is negative with the exception of the above-mentioned pertinent positive of persistent, irregular spotting and bleeding since delivery. The patient's bloo d type is O positive. ASSESSMENT AND PLAN: A 37-year-old, 2, para 1-0-1-1, who was 10 weeks with retain ed placenta. She will undergo a suction, dilation and curettage. Risks and benefits have been revie wed with the patient, and the patient will sign consent day of surgery. /[id number]/MODL
[2018-04-19] MEDS ORDERED: fentaNYL 100 MCG/2 ML INJ IVP PRN (09:46)
[2018-04-19] MEDS ORDERED: NALOXONE HCL 0.4 MG/ML INJ IVP PRN (09:46)
[2018-04-19] MEDS ORDERED: ONDANSETRON 4 MG/2 ML VIAL IVP PRN (09:46)
[2018-04-19] MEDS ORDERED: ALBUTEROL 3 ML DEYVIAL IH PRN (09:46)
--- NOTE | 2018-04-19 09:46 | PDANEPAE ---
ANE Past Medical History - Pulmonary History Hx Oxygen in Use at Home: No Hx Sleep Apnea: No - Endocrine History Hx Diabetes: No ANE Review of Systems Review of Systems: ANE Patient History - Allergies Allergies/Adverse Reactions: codeine Allergy (Verified 02/01/17 17:56) erythromycin base Allergy (Verified 02/01/17 17:56) mineral oil* [From Aquaphor] Allergy (Verified 02/01/18 14:42) Rash petrolatum,hydrophilic [From Aquaphor] Allergy (Verified 02/01/18 14:42) Rash - Home Medications Home Medications: Levothyroxine 150 mcg PO DAILY 02/22/15 [Last Taken Unknown] Docosahexanoic Acid [ Dha] 1 tab PO DAILY MDD does gummies 01/30/18 [ Last Taken Unknown] Beclomethasone Qvar 80 [Qvar 80 Redihaler (*)] 1 inh IH DAILY 02/02/18 [Last Taken Unknown] - Smoking Hx Smoking Status: Never smoked ANE Labs/Vital Signs - Vital Signs Blood Pressure: 116/85 O2 Sat (%): 95 ANE Physical Exam - Airway Neck exam: FROM Mallampati Score: Class 1 Mouth exam: normal dental/mouth exam - Pulmonary Pulmonary: no respiratory distress - Cardiovascular Cardiovascular: regular rate and rhythym - ASA Status ASA Status: II ANE Anesthesia Plan Total IV Anesthesia: Yes
[2018-04-19 10:10] LABS: PLATELET COUNT 271 10^3/uL (150-400)
[2018-04-19] MEDS ORDERED: PROPOFOL/EMULSION 500 MG/50 ML BOTTLE IV ONE (10:17)
[2018-04-19] MEDS ORDERED: LIDOCAINE 2% 100 MG/5 ML SYR ONE (10:17)
[2018-04-19] MEDS ORDERED: MISOPROSTOL 200 MCG TAB ONE (10:28)
--- NOTE | 2018-04-19 12:07 | SUROPNOTE ---
[facility] Operative Report - Surgery Date of Operation: 04/19/18 Surgeon: Can Root Bisque Cleaner: None Anesthesiologist: Dr. Reeves Anesthesia: IV Sedation Pre-op Diagnosis: Retained products of conception Post-op Diagnosis: Same Procedure: Suction D&C, US-Guidance Findings: Small solid tay tissue retrieved via suction, Thin stripe on US after Inf/Abcess present in the surg proc area at time of surgery?: No EBL: 25cc Complications: None Specimen(s): Products of conception Technique:
[2018-04-19 12:57] VITALS: BP 123/79
== END 2018-04-19 13:13 | disposition home or self-care (01) ==
LOC: FOBOP 08:51
PROVIDERS: ATTEND Obstetrics & Gynecology
PROC: 10D17ZZ Extraction of Products of Conception, Retained, Via Natural or Artificial Opening (ICD-10-PCS; principal; 2018-04-19)
DX: O73.0 Retained placenta without hemorrhage (principal); E03.9 Hypothyroidism, unspecified; G43.909 Migraine, unspecified, not intractable, without status migrainosus; J45.909 Unspecified asthma, uncomplicated; K76.89 Other specified diseases of liver; F41.9 Anxiety disorder, unspecified
CPT/HCPCS: J2001; J2704; J7613

== ENCOUNTER → 2018-07-05 | Outpatient (CLI) | payer OTHER | LOC: FIMAGING 07:24 | PROVIDERS: ATTEND Internal Medicine Gastroenterology | DX: R93.2 Abnormal findings on diagnostic imaging of liver and biliary tract (principal) ==